=== PATIENT | female | born 1965 | race Caucasian/White ===

== ENCOUNTER 2016-10-06 05:31 | Inpatient (IN) | payer OTHER ==
[~2016-10-06] VITALS: Ht 154.9 cm; Wt 69.8 kg
[2016-10-06] VITALS (35 sets, daily range): BP systolic 139–184; BP diastolic 67–107
--- NOTE | ~2016-10-06 | H ---
[facility] [place] [address] HISTORY AND PHYSICAL Name: ÓSCAR HARMON Room #: 315-P [facility] IN M.R.#: [id number] Admission: 10/06/16 Attend Phys: Sylvain Mcpherson Discharge: 10/09/16 Date of : 67 Report #: [id number] THIS REPORT FOR: //name// CC: [facility] physician/PCP Sylvain Mcpherson ATTENDING PHYSICIAN: Dr. Mcpherson, PRIMARY CARE PHYSICIAN: Dr. Grubbs. CHIEF COMPLAINT: Left leg pain. HISTORY OF PRESENT ILLNESS: The patient is a 51-year-old female who came into the ER earlier this morning complaining of the left lower leg pain. The pain awoke her from her sleep around 5:00 a.m. this morning and continued to stay constant prior to arrival. She said her left foot felt somewhat cold for the last week. She rates her pain 10/10 upon arrival. She actually just saw her primary care physician last week complaining of some tingling in both of her feet, her doctor checked her sugar and said that it was very high and her blood sugar were uncontrolled that it was likely related to neuropathy. She has not been taking her metformin for 6 months because she says she felt fine and did not think that she needed it. Her primary care physician just started her on 70/30 insulin, she had not been checking her blood sugars at all. She also says the pain is significantly worse if she tries to walk. She has never had any history of clot. She denies any tobacco use. She has already been taken to IR and had any angiogram done which showed arterial occlusion in the left lower extremity and is in ICU with TPA infusing, she continues to have left foot pain. PAST MEDICAL HISTORY: Diabetes and peripheral neuropathy. PAST SURGICAL HISTORY: x 4 and a partial hysterectomy. ALLERGIES: None. HOME MEDICATIONS: 70/30 insulin 15 units daily and 7 units at night and hydrocodone one tab q. 4 hours p.r.n., aspirin 325 mg daily. SOCIAL HISTORY: The patient denies any tobacco, alcohol or drug use. She lives at home with her boyfriend. She is currently unemployed. She drinks alcohol occasionally. FAMILY HISTORY: Negative for any blood or bleeding disorder. REVIEW OF SYSTEMS: Twelve point review of systems was reviewed with the patient, otherwise negative unless stated in the HPI. PHYSICAL EXAMINATION: [facility] [address] [place] [address] HISTORY AND PHYSICAL Name: ÓSCAR HARMON Room #: 315-P DIS IN M.R.#: [id number] Admission: 10/06/16 Attend Phys: Sylvain Mcpherson Discharge: 10/09/16 Date of : 67 Report #: [id number] GENERAL: The patient is an alert female in no acute distress. CURRENT VITAL SIGNS: Temperature is 36.6, heart rate 115, respirations 12, blood pressure is 142/88, oxygen 97% on room air. HEENT: PERRLA. Sclerae is nonicteric. Oral mucosa is pink and moist. NECK: Supple, no JVD noted. CARDIOVASCULAR: Normal S1, S2. No murmurs, rubs or gallops. RESPIRATORY: Breath sounds are clear bilaterally. No wheezing or rhonchi. Breathing is nonlabored. ABDOMEN: Soft, nontender, nondistended with positive bowel sounds. VASCULAR: No peripheral edema noted, her left foot is cool and no palpable pulses, on Dopplers there a few monophasic sounds, but it is not her actual rate, her left foot is tender to touch. NEUROLOGIC: The patient is alert and oriented x 3. Speech is clear. She is answering questions appropriately and following commands. No focal deficits noted. LABORATORY AND DIAGNOSTICS: WBC is 5.6, hemoglobin 14.6, platelets 234. INR 1.1. D-dimer is 0.25. Sodium 135, potassium 4.1, BUN 13, creatinine 0.6, glucose is 297. LFTs are within normal limits. Cardiac enzymes are negative. BNP is . Venous Doppler was negative for DVT. Arterial Dopplers in the ER shows some occluded left distal femoral artery and occluded left trifurcation artery. ASSESSMENT AND PLAN: 1. Acute arterial occlusion of the left leg. The patient has already been taken to IR and TPA was given, she will continue with that TPA infusion as well as heparin infusion and per IR, she will call back in the morning for TPA with run off to further evaluate her leg for ischemia. 2. Diabetes, this is uncontrolled. She recently was started on 70/30 insulin, which we will resume, she has not taken metformin for 6 months. Her blood sugars were not getting checked. We will check a hemoglobin A1c. We will continue to follow the patient closely throughout the hospitalization and make changes based on clinical status. <ELECTRONICALLY SIGNED> By: CORRIE Chapman 10/12/16 [phone] 0805 CORRIE Chapman /nt
--- NOTE | ~2016-10-06 | EKG ---
[address] [place] [address] ELECTROCARDIOGRAM REPORT Name: ÓSCAR HARMON Room #: 238-P ADM IN M.R.#: [id number] Admission: 10/06/16 Attend Phys: Sylvain Mcpherson Discharge: Date of : 67 Report #: [id number] THIS REPORT FOR: //name// [facility] ED Test Date: 2016-10-06 Test Time: 08:50:52 Pat Name: ÓSCAR HARMON Department: Room: 238 Gender: F Metallurgical Lab Technician: Lizz HILL : 1965 Requested By: Riley Guerra Order Number: [id number] MD: Tenzin Garcia Measurements Intervals [place] Rate: 88 P: 33 SC: 188 QRS: 4 QRSD: 88 T: 27 QT: 360 QTc: 436 Interpretive Statements Sinus rhythm No significant abnormality No previous ECG available for comparison Electronically Signed On 10-07-2016 8:13:08 CDT by Tenzin Garcia [email or web address] <ELECTRONICALLY SIGNED> By: Tenzin Garcia MD, [facility] 10/07/16 0813 0850 0850 Tenzin Garcia MD, FACC /EPI
[~2016-10-06 05:31] MED LIST: ASPIRIN325 PO; BACTRIM DS TAB1 EACH PO; GLUMETZA1000 PO; IBUPROFEN 800800 MG PO; MACROBID 100 M100 M1 PO; METFORMIN HCL500 MG PO; NORCO 5-325 TA1 EACH PO
[2016-10-06 07:08] LABS: HEMOGLOBIN 14.6 gm/dL (12.0-15.0); MCH 30.4 pg (26.0-34.0); MCHC 33.9 g/dL (28.0-37.0); MCV 89.8 fL (80.0-100.0); RBC 4.79 mil/uL (4.20-5.00); WBC 5.6 thou/uL (4.0-11.0)
[2016-10-06 07:15] LABS: CALCIUM 9.3 mg/dL (8.5-10.1); CREATININE 0.6 mg/dL (0.6-1.3); POTASSIUM 4.1 mmol/L (3.5-5.1)
[2016-10-06 07:18] LABS: APTT 24.3 Seconds (24.5-32.8); INR 1.1; PROTIME 10.9 Seconds (9.3-11.4)
[2016-10-06 07:23] LABS: ALBUMIN 3.3 g/dL (3.4-5.0); TOTAL BILIRUBIN 0.4 mg/dL (<0.1-1.0); TOTAL PROTEIN 6.8 g/dL (6.4-8.2)
[2016-10-06 08:42] LABS: TROPONIN-I < 0.04 ng/mL (<0.04-0.07)
[2016-10-06 17:06] LABS: HEMATOCRIT 42.9 % (37.0-47.0); HEMOGLOBIN 14.8 gm/dL (12.0-15.0); MCH 30.9 pg (26.0-34.0); MCHC 34.5 g/dL (28.0-37.0); MCV 89.5 fL (80.0-100.0); RBC 4.79 mil/uL (4.20-5.00); RDW 12.7 % (10.5-14.5); WBC 9.7 thou/uL (4.0-11.0)
[2016-10-06 17:21] LABS: APTT 26.5 Seconds (24.5-32.8); FIBRINOGEN 278.7 mg/dL (210-360)
[2016-10-06 22:31] LABS: HEMATOCRIT 42.3 % (37.0-47.0); HEMOGLOBIN 14.5 gm/dL (12.0-15.0); MCH 30.8 pg (26.0-34.0); MCHC 34.4 g/dL (28.0-37.0); MCV 89.6 fL (80.0-100.0); RBC 4.73 mil/uL (4.20-5.00); RDW 12.6 % (10.5-14.5)
[2016-10-06 22:51] LABS: APTT 27.6 Seconds (24.5-32.8)
[2016-10-07] VITALS (30 sets, daily range): BP systolic 104–158; BP diastolic 66–089
[2016-10-07] MEDS ORDERED: NOVOLOG MI100 UNIT/M SC ×2 (00:09→00:11)
[2016-10-07 04:13] LABS: HEMATOCRIT 39.4 % (37.0-47.0); HEMOGLOBIN 13.4 gm/dL (12.0-15.0); MCH 30.7 pg (26.0-34.0); MCHC 34.1 g/dL (28.0-37.0); RBC 4.38 mil/uL (4.20-5.00); RDW 13.2 % (10.5-14.5); WBC 7.3 thou/uL (4.0-11.0)
[2016-10-07 04:34] LABS: APTT 27.8 Seconds (24.5-32.8); FIBRINOGEN 167.8 mg/dL (210-360)
[2016-10-07 10:38] LABS: CHOLESTEROL 248 mg/dL (<200); HDL CHOLESTEROL 44 mg/dL (>40); LDL CHOLESTEROL 178 mg/dL (<100); TC:HDL 5.6 Ratio (Not establshd); TRIGLYCERIDE 134 mg/dL (<150); VLDL 27 mg/dL (<40)
[2016-10-07 12:53] LABS: HEMATOCRIT 40.6 % (37.0-47.0); HEMOGLOBIN 13.8 gm/dL (12.0-15.0); MCH 30.9 pg (26.0-34.0); MCHC 33.9 g/dL (28.0-37.0); RBC 4.46 mil/uL (4.20-5.00); RDW 12.9 % (10.5-14.5); WBC 7.4 thou/uL (4.0-11.0)
[2016-10-07 13:08] LABS: APTT 27.8 Seconds (24.5-32.8)
[2016-10-07 22:06] LABS: GLYCOHEMOGLOBIN (HGB A1C) 13.3 % (4.8-5.6)
[2016-10-07 22:44] LABS: HEMATOCRIT 39.2 % (37.0-47.0); HEMOGLOBIN 13.4 gm/dL (12.0-15.0); MCH 30.9 pg (26.0-34.0); MCHC 34.1 g/dL (28.0-37.0); MCV 90.6 fL (80.0-100.0); RBC 4.33 mil/uL (4.20-5.00); WBC 6.2 thou/uL (4.0-11.0)
[2016-10-07 22:59] LABS: FIBRINOGEN 192.5 mg/dL (210-360)
[2016-10-07 23:03] LABS: APTT 61.8 Seconds (24.5-32.8)
[2016-10-08 00:01] VITALS: BP 107/66
[2016-10-08 04:23] VITALS: BP 117/65
[2016-10-08 06:12] LABS: HEMATOCRIT 36.2 % (37.0-47.0); HEMOGLOBIN 12.5 gm/dL (12.0-15.0); MCH 31.1 pg (26.0-34.0); MCHC 34.4 g/dL (28.0-37.0); MCV 90.5 fL (80.0-100.0); RDW 12.8 % (10.5-14.5); WBC 7.5 thou/uL (4.0-11.0)
[2016-10-08 06:22] LABS: APTT 56.2 Seconds (24.5-32.8)
[2016-10-08 06:35] LABS: ALBUMIN 2.5 g/dL (3.4-5.0); CALCIUM 8.2 mg/dL (8.5-10.1); CREATININE 0.5 mg/dL (0.6-1.3); POTASSIUM 3.6 mmol/L (3.5-5.1)
[2016-10-08 08:09] VITALS: BP 159/82
[2016-10-08 10:50] LABS: HEMATOCRIT 36.6 % (37.0-47.0); HEMOGLOBIN 12.8 gm/dL (12.0-15.0); MCH 31.3 pg (26.0-34.0); MCHC 34.9 g/dL (28.0-37.0); MCV 89.6 fL (80.0-100.0); RBC 4.08 mil/uL (4.20-5.00); RDW 13.3 % (10.5-14.5); WBC 7.3 thou/uL (4.0-11.0)
[2016-10-08 11:04] LABS: APTT 52.5 Seconds (24.5-32.8); FIBRINOGEN 278.7 mg/dL (210-360)
[2016-10-08 11:50] VITALS: BP 159/82
[2016-10-08 16:12] VITALS: BP 150/83
[2016-10-08 17:01] LABS: HEMATOCRIT 35.9 % (37.0-47.0); HEMOGLOBIN 12.6 gm/dL (12.0-15.0); MCH 31.2 pg (26.0-34.0); MCHC 34.9 g/dL (28.0-37.0); MCV 89.2 fL (80.0-100.0); RBC 4.03 mil/uL (4.20-5.00); RDW 12.9 % (10.5-14.5); WBC 6.6 thou/uL (4.0-11.0)
[2016-10-08 17:13] LABS: FIBRINOGEN 282.8 mg/dL (210-360)
[2016-10-08 17:16] LABS: APTT 26.6 Seconds (24.5-32.8)
[2016-10-08 20:00] VITALS: BP 149/82
[2016-10-08 22:45] LABS: HEMATOCRIT 36.3 % (37.0-47.0); HEMOGLOBIN 12.5 gm/dL (12.0-15.0); MCH 31.1 pg (26.0-34.0); MCHC 34.5 g/dL (28.0-37.0); MCV 90.2 fL (80.0-100.0); RBC 4.03 mil/uL (4.20-5.00); RDW 12.9 % (10.5-14.5); WBC 7.2 thou/uL (4.0-11.0)
[2016-10-08 22:59] LABS: APTT 25.7 Seconds (24.5-32.8); FIBRINOGEN 282.8 mg/dL (210-360)
[2016-10-09 04:00] VITALS: BP 137/75
[2016-10-09 08:06] VITALS: BP 135/84
[2016-10-09] MEDS ORDERED: CLOPIDOGREL75 MG PO (11:07)
[2016-10-09] MEDS ORDERED: ASPIR 8181 MG PO (11:12)
[2016-10-09 12:15] VITALS: BP 135/84
[2016-10-09 12:49] VITALS: BP 128/97
== END 2016-10-09 12:58 | disposition home or self-care (01) | DRG 254 ==
LOC: ER 05:31 → EROBS 08:15 → ICU 08:15 → 3N 10-08 01:17
PROVIDERS: Emergency Medicine; Hospitalist; Nurse Practitioner Acute Care; Radiology Vascular & Interventional Radiology
PROC: 3E03317 Introduction of Other Thrombolytic into Peripheral Vein, Percutaneous Approach (ICD-10-PCS; principal; 2016-10-06)
PROC: 047N3ZZ Dilation of Left Popliteal Artery, Percutaneous Approach (ICD-10-PCS; 2016-10-07)
PROC: 047L34Z Dilation of Left Femoral Artery with Drug-eluting Intraluminal Device, Percutaneous Approach (ICD-10-PCS; 2016-10-07)
PROC: 047Q3ZZ Dilation of Left Anterior Tibial Artery, Percutaneous Approach (ICD-10-PCS; 2016-10-07)
PROC: B41G1ZZ Fluoroscopy of Left Lower Extremity Arteries using Low Osmolar Contrast (ICD-10-PCS; 2016-10-07)
DX: I73.9 Peripheral vascular disease, unspecified (principal); I77.1 Stricture of artery; E11.42 Type 2 diabetes mellitus with diabetic polyneuropathy; E11.65 Type 2 diabetes mellitus with hyperglycemia; Z79.4 Long term (current) use of insulin; Z79.82 Long term (current) use of aspirin; Z79.899 Other long term (current) drug therapy; Z90.711 Acquired absence of uterus with remaining cervical stump
CPT/HCPCS: 10078; 10096

== ENCOUNTER 2018-04-21 19:31 | Inpatient (IN) | payer OTHER ==
[~2018-04-21] VITALS: Ht 157.5 cm; Wt 74.0 kg
--- NOTE | ~2018-04-21 | EKG ---
[address] [address] ELECTROCARDIOGRAM REPORT Name: ÓSCAR HARMON Room #: 201-P ADM IN M.R.#: [id number] Admission: 04/21/18 Attend Phys: Sylvain Mcpherson Discharge: Date of : 67 Report #: [id number] THIS REPORT FOR: //name// [facility] ED Test Date: 2018-04-21 Test Time: 19:59:37 Pat Name: ÓSCAR HARMON Department: Room: 201 Gender: F Educational Manager: RUDOLPH : 1965 Requested By: Kyra Nicole Order Number: [id number] MD: Tenzin Garcia Measurements Intervals [place] Rate: 109 P: 45 [place]: 157 QRS: 60 QRSD: 95 T: -29 QT: 343 QTc: 463 Interpretive Statements Sinus tachycardia Probable left atrial enlargement Inferior infarct, age indeterminate Compared to ECG 10/06/2016 08:50:[address] and T wave abnormality is now present Electronically Signed On 04-22-2018 10:11:54 CDT by Tenzin Garcia [email or web address] <ELECTRONICALLY SIGNED> By: Tenzin Garcia MD, [facility] 04/22/18 1011 58 58 Tenzin Garcia MD, [facility] /EPI
[~2018-04-21 19:31] MED LIST changes: +ASPIR 8181 MG PO; +CLOPIDOGREL75 MG PO; +NOVOLOG MI100 UNIT/M SC
[2018-04-21 19:39] VITALS: BP 99/69
[2018-04-21 20:08] LABS: URINE BILIRUBIN NEGATIVE (Negative); URINE BLOOD 1+ (Negative); URINE COLOR YELLOW; URINE GLUCOSE-RANDOM* 3+ (Negative); URINE KETONES 1+ (Negative); URINE NITRITE-REFLEX NEGATIVE (Negative); URINE PROTEIN (DIPSTICK) TRACE (Negative); URINE UROBILINOGEN 0.2 E.U./dl (0.2-1.0)
[2018-04-21 20:11] LABS: URINE LEUKOCYTES-REFLEX 2+ (Negative)
[2018-04-21 20:12] LABS: URINE CLARITY CLOUDY
[2018-04-21 20:14] LABS: BACTERIA-REFLEX >30 Many /HPF (None Seen); SQUAMOUS 0-3 Few /LPF (0-3); URINE RBC 3-10 Few /HPF (0-2); URINE WBC-REFLEX >25 Many /HPF (0-5)
[2018-04-21 20:15] LABS: CASTS None Seen /LPF (None Seen); CRYSTALS None Seen /LPF (None Seen)
[2018-04-21 20:38] LABS: ABSOLUTE NEUTROPHILS 9.1 thou/uL (1.4-8.2); BASOPHILS 0.2 % (0.0-2.0); HEMATOCRIT 45.1 % (37.0-47.0); HEMOGLOBIN 15.8 gm/dL (12.0-15.0); LYMPHOCYTES 8.5 % (24.0-44.0); MCH 30.2 pg (26.0-34.0); MCV 86.1 fL (80.0-100.0); MONOCYTES 5.3 % (1.0-8.0); PLATELET COUNT 262 thou/uL (150-400); RBC 5.23 mil/uL (4.20-5.00); RDW 13.7 % (10.5-14.5); WBC 10.6 thou/uL (4.0-11.0)
[2018-04-21 20:42] LABS: CALCIUM 10.2 mg/dL (8.5-10.1); CREATININE 1.1 mg/dL (0.6-1.0); POTASSIUM 3.7 mmol/L (3.5-5.1)
[2018-04-21 20:50] LABS: ALBUMIN 3.6 g/dL (3.4-5.0); TOTAL BILIRUBIN 0.6 mg/dL (<0.1-1.0); TOTAL PROTEIN 8.3 g/dL (6.4-8.2); TROPONIN-I 0.21 ng/mL (<0.06)
[2018-04-21 22:52] VITALS: BP 98/55
[2018-04-21 23:16] VITALS: BP 101/55
[2018-04-21 23:25] VITALS: BP 105/60
[2018-04-22] MEDS ORDERED: NOVOLIN 70100 UNIT/5 SUBQ (00:35)
[2018-04-22 03:54] VITALS: BP 93/63
[2018-04-22 04:18] LABS: HEMATOCRIT 38.5 % (37.0-47.0); MCH 29.3 pg (26.0-34.0); MCHC 33.7 g/dL (28.0-37.0); MCV 87.2 fL (80.0-100.0); RBC 4.42 mil/uL (4.20-5.00); RDW 13.5 % (10.5-14.5)
[2018-04-22 04:28] LABS: CALCIUM 8.7 mg/dL (8.5-10.1); CREATININE 0.9 mg/dL (0.6-1.0); POTASSIUM 3.4 mmol/L (3.5-5.1)
[2018-04-22 08:14] VITALS: BP 128/71
[2018-04-22 12:23] VITALS: BP 119/59
[2018-04-22 14:19] LABS: URINE BILIRUBIN NEGATIVE (Negative); URINE BLOOD 1+ (Negative); URINE CLARITY CLEAR; URINE COLOR YELLOW; URINE GLUCOSE-RANDOM* TRACE (Negative); URINE KETONES TRACE (Negative); URINE LEUKOCYTES 1+ (Negative); URINE NITRITE POSITIVE (Negative); URINE PROTEIN (DIPSTICK) 1+ (Negative); URINE SPECIFIC GRAVITY 1.015 (1.005-1.035); URINE UROBILINOGEN 0.2 E.U./dl (0.2-1.0)
[2018-04-22 14:30] LABS: CASTS None Seen /LPF (None Seen); SQUAMOUS None Seen /LPF (0-3); URINE RBC 3-10 Few /HPF (0-2); URINE WBC >25 Many /HPF (0-5)
[2018-04-22 14:31] LABS: BACTERIA 1-9 Few /HPF (None Seen); CRYSTALS None Seen /LPF (None Seen); MUCUS 4-6 Moderate strn/LPF (None Seen); WBC CLUMPS Packed (None Seen)
[2018-04-22 14:47] VITALS: BP 124/69
[2018-04-22 19:15] VITALS: BP 91/36
[2018-04-22 23:05] LABS: GLYCOHEMOGLOBIN (HGB A1C) 14.7 % (4.8-5.6)
[2018-04-23 03:56] VITALS: BP 149/78
[2018-04-23 04:12] LABS: ABSOLUTE NEUTROPHILS 5.6 thou/uL (1.4-8.2); BASOPHILS 0.4 % (0.0-2.0); HEMOGLOBIN 12.4 gm/dL (12.0-15.0); LYMPHOCYTES 10.1 % (24.0-44.0); MCH 30.1 pg (26.0-34.0); MCHC 34.3 g/dL (28.0-37.0); MCV 87.7 fL (80.0-100.0); MONOCYTES 7.9 % (1.0-8.0); PLATELET COUNT 162 thou/uL (150-400); POLYS 81.6 % (36.0-66.0); WBC 6.9 thou/uL (4.0-11.0)
[2018-04-23 04:28] LABS: CALCIUM 8.5 mg/dL (8.5-10.1); CREATININE 0.7 mg/dL (0.6-1.0); MAGNESIUM 1.8 mg/dL (1.8-2.4); POTASSIUM 3.6 mmol/L (3.5-5.1)
[2018-04-23 07:59] VITALS: BP 150/82
[2018-04-23 11:07] VITALS: BP 1586/95
[2018-04-23 15:50] VITALS: BP 152/95
[2018-04-23 19:27] VITALS: BP 141/84
[2018-04-24 05:28] VITALS: BP 117/71
[2018-04-24 07:12] VITALS: BP 138/84
[2018-04-24] MEDS ORDERED: CIPRO500 MG PO (07:55)
[2018-04-24 12:08] VITALS: BP 140/82
[2018-04-24 15:07] VITALS: BP 135/84
[2018-04-24 18:34] VITALS: BP 135/84
[2018-04-24 19:48] VITALS: BP 135/84
== END 2018-04-24 19:20 | disposition home or self-care (01) | DRG 871 ==
LOC: ER 19:31 → 2N 22:32 → EROBS 22:32 → 2N 23:20
PROVIDERS: Internal Medicine; Nurse Practitioner Family; Student in an Organized Health Care Education/Training Program
DX: A41.9 Sepsis, unspecified organism (principal); R65.21 Severe sepsis with septic shock; N10 Acute pyelonephritis; E11.9 Type 2 diabetes mellitus without complications; E66.9 Obesity, unspecified; Z90.49 Acquired absence of other specified parts of digestive tract; Z79.899 Other long term (current) drug therapy; Z79.82 Long term (current) use of aspirin; Z79.4 Long term (current) use of insulin; Z68.29 Body mass index [BMI] 29.0-29.9, adult; Z79.01 Long term (current) use of anticoagulants; Z95.820 Peripheral vascular angioplasty status with implants and grafts; Z23 Encounter for immunization
CPT/HCPCS: 10081

== ENCOUNTER 2019-07-24 16:43 | Inpatient (IN) | payer OTHER ==
[~2019-07-24] VITALS: Ht 165.1 cm; Wt 82.2 kg
[~2019-07-24 16:43] MED LIST changes: +CIPRO500 MG PO; +NOVOLIN 70100 UNIT/5 SUBQ
[2019-07-24 16:45] VITALS: BP 143/81
[2019-07-24] MEDS ORDERED: LANTUS SOL100 UNIT/1 SUBQ (18:45)
[2019-07-24] MEDS ORDERED: ATORVASTATIN CA80 MG PO (18:45)
[2019-07-24] MEDS ORDERED: ASA81BEC PO (18:45)
[2019-07-24 19:00] LABS: ABSOLUTE NEUTROPHILS 8.6 thou/uL (1.4-8.2); BASOPHILS 0.5 % (0.0-2.0); EOSINOPHILS 0.1 % (0.0-3.0); HEMATOCRIT 44.4 % (37.0-47.0); HEMOGLOBIN 15.1 gm/dL (12.0-15.0); LYMPHOCYTES 5.4 % (24.0-44.0); MCH 30.2 pg (26.0-34.0); MCHC 33.9 g/dL (28.0-37.0); MCV 88.9 fL (80.0-100.0); MONOCYTES 6.2 % (1.0-8.0); PLATELET COUNT 246 thou/uL (150-400); POLYS 87.8 % (36.0-66.0); WBC 9.8 thou/uL (4.0-11.0)
[2019-07-24 19:07] LABS: ANION GAP 9 mmol/L (7-16); BUN 18 mg/dL (7-18); CALCIUM 9.8 mg/dL (8.5-10.1); CHLORIDE 96 mmol/L (98-107); CO2 28 mmol/L (21-32); GLUCOSE 442 mg/dL (74-106); POTASSIUM 4.2 mmol/L (3.5-5.1); SODIUM 133 mmol/L (136-145)
[2019-07-24 19:17] LABS: ALBUMIN 3.6 g/dL (3.4-5.0); DIRECT BILIRUBIN 0.1 mg/dL (<0.1-0.2); LIPASE 66 U/L (73-393); SGOT 20 U/L (15-37); SGPT 29 U/L (30-65); TOTAL BILIRUBIN 0.6 mg/dL (<0.1-1.0); TOTAL PROTEIN 8.1 g/dL (6.4-8.2); TROPONIN-I <0.06 ng/mL (<0.06)
[2019-07-24 20:50] LABS: APTT 28.3 Seconds (24.5-32.8); INR 1.1; PROTIME 10.8 Seconds (9.3-11.4)
[2019-07-25] VITALS (13 sets, daily range): BP systolic 110–143; BP diastolic 60–84
[2019-07-25 02:40] LABS: CSF GLUCOSE 220 mg/dL (40-70)
[2019-07-25 02:43] LABS: CSF RBC 5 /mm3; CSF WBC 7 /mm3 (0-10); VOLUME 6.5 ml
[2019-07-25 02:44] LABS: CSF CLARITY CLEAR; CSF COLOR COLORLESS
[2019-07-25 03:24] LABS: CSF POLYS 8 %
[2019-07-25 03:25] LABS: CSF EOSINOPHILS 1 %; CSF LYMPHOCYTES 41 %
[2019-07-25 05:24] LABS: URINE CLARITY CLOUDY; URINE COLOR YELLOW; URINE GLUCOSE-RANDOM* 3+ (Negative); URINE KETONES 2+ (Negative); URINE PROTEIN (DIPSTICK) TRACE (Negative)
[2019-07-25 05:25] LABS: URINE BILIRUBIN 1+ (Negative); URINE BLOOD 2+ (Negative); URINE LEUKOCYTES-REFLEX NEGATIVE (Negative); URINE NITRITE-REFLEX NEGATIVE (Negative); URINE UROBILINOGEN 0.2 E.U./dl (0.2-1.0)
[2019-07-25 05:53] LABS: CASTS None Seen /LPF (None Seen); CRYSTALS None Seen /LPF (None Seen); MUCUS 0-3 Light strn/LPF (None Seen); SQUAMOUS 0-3 Few /LPF (0-3); URINE RBC 3-10 Few /HPF (0-2); URINE WBC-REFLEX 0-5 Rare /HPF (0-5)
[2019-07-25 09:44] LABS: HEMATOCRIT 42.2 % (37.0-47.0); HEMOGLOBIN 13.9 gm/dL (12.0-15.0); MCHC 32.9 g/dL (28.0-37.0); MCV 91.4 fL (80.0-100.0); RBC 4.61 mil/uL (4.20-5.00); RDW 13.4 % (10.5-14.5); WBC 11.4 thou/uL (4.0-11.0)
[2019-07-25 10:07] LABS: CALCIUM 9.5 mg/dL (8.5-10.1); CREATININE 1.4 mg/dL (0.6-1.0); POTASSIUM 4.7 mmol/L (3.5-5.1); TOTAL BILIRUBIN 0.6 mg/dL (<0.1-1.0); TOTAL PROTEIN 7.3 g/dL (6.4-8.2)
[2019-07-25 17:29] LABS: URINE BLOOD TRACE (Negative); URINE CLARITY SL CLOUDY; URINE COLOR YELLOW; URINE GLUCOSE-RANDOM* 3+ (Negative); URINE KETONES 1+ (Negative); URINE LEUKOCYTES NEGATIVE (Negative); URINE NITRITE NEGATIVE (Negative); URINE PROTEIN (DIPSTICK) TRACE (Negative); URINE SPECIFIC GRAVITY 1.015 (1.005-1.035); URINE UROBILINOGEN 0.2 E.U./dl (0.2-1.0)
[2019-07-25 17:34] LABS: ICTOTEST (BILI CONFIRMATORY) Negative (Negative); URINE BILIRUBIN NEGATIVE (Negative)
[2019-07-26 02:08] LABS: GLYCOHEMOGLOBIN (HGB A1C) 13.9 % (4.8-5.6)
[2019-07-26 03:26] VITALS: BP 152/87
[2019-07-26 05:31] LABS: CALCIUM 8.6 mg/dL (8.5-10.1); CREATININE 1.2 mg/dL (0.6-1.0); MAGNESIUM 1.9 mg/dL (1.8-2.4); POTASSIUM 3.9 mmol/L (3.5-5.1)
[2019-07-26 05:40] LABS: HEMATOCRIT 39.1 % (37.0-47.0); HEMOGLOBIN 12.8 gm/dL (12.0-15.0); MCHC 32.6 g/dL (28.0-37.0); MCV 92.1 fL (80.0-100.0); RBC 4.25 mil/uL (4.20-5.00); RDW 13.6 % (10.5-14.5)
[2019-07-26 07:30] VITALS: BP 139/80
--- NOTE | 2019-07-26 08:04 | HC ---
[facility] [place] [address] [place] [address] CONSULTATION Name: ÓSCAR HARMON Room #: 214-P ADM IN M.R.#: [id number] Admission: 07/25/19 Attend Phys: Marquise Montgomery MD Discharge: Date of : 67 Report #: [id number] THIS REPORT FOR: //name// CC: Cady Jett [facility] physician/PCP DATE OF SERVICE: 07/25/2019 ENDOCRINE CONSULTATION NOTE CONSULTING PHYSICIAN: Dr. Montgomery. REASON FOR CONSULTATION: Uncontrolled type 2 diabetes mellitus. HISTORY OF PRESENT ILLNESS: This is a 53-year-old female patient whose medical background is significant for multiple medical issues, including type 2 diabetes mellitus, hypertension, hyperlipidemia and obesity, who presented to the ER with a wide array of symptoms including chills, diffuse pains, diffuse burning sensation, abdominal discomfort. She rated her discomfort degree as a 10/10. She also describes neck stiffness and rigidity. When questioned about her diabetes history, she indicated that she has had type 2 diabetes mellitus for over 10 years. She is maintained on a combination of metformin, Humulin 70/30 insulin taken at a dose of 5 units in the morning and 30 units in the evenings in addition to Lantus insulin 10 units twice a day. She describes that her fasting blood glucose values are typically in the low to mid 100s, but that later in the day, her blood glucose would run typically above 400 and occasionally into the 600 mg/dL range. When asked about hypoglycemia, she said that it occasionally happens, but then she identified that as blood sugars in the low 100s. The patient believes that she has had some retinal damage due to 2 diabetes mellitus, but could not elaborate further on this. She is not aware of issues pertaining to diabetic nephropathy, but does have peripheral numbness and tingling likely reflective of diabetic neuropathy. The patient denies an active history of coronary artery disease, but recalls having had a lower extremity surgical intervention, but she was not exactly sure as to the nature of that intervention. Her records indicate that she had undergone stenting of her femoral artery due to peripheral vascular disease. REVIEW OF SYSTEMS: CONSTITUTIONAL: Fatigue, tiredness, fever, chills, no changes in body weight. HEENT: Negative for sinus pain, sinus pressure, ear drainage. PULMONARY: Occasional shortness of breath and cough, but no hemoptysis. CARDIAC: Intermittent palpitations, no chest pain. She has intermittent lower extremity swelling. GASTROINTESTINAL: Abdominal discomfort, heartburn, nausea, but no vomiting. [facility] [address] [place] [address] CONSULTATION Name: ÓSCAR HARMON Room #: 214-P [facility] IN ..#: [id number] Admission: 07/25/19 Attend Phys: Marquise Montgomery MD Discharge: Date of : 67 Report #: [id number] NEUROLOGY: Tremors, dizziness, lightheadedness, but not seizure activity or loss of consciousness. MUSCULOSKELETAL: Diffuse body aches and pains. PSYCHIATRIC: No delusions or hallucinations. SKIN: No rash, ulceration, or other major abnormalities. Otherwise, review of systems noncontributory unless mentioned in HPI. PAST MEDICAL HISTORY: 1. Type 2 diabetes mellitus. 2. Hypertension. 3. Hyperlipidemia. 4. Peripheral diabetic neuropathy. 5. Diabetic retinopathy. 6. Peripheral vascular disease, status post 2 stent placements in her femoral artery, likely right sided. OUTPATIENT MEDICATIONS: Include Humulin 70/30 insulin 5 units in a.m., 30 units at night; Lantus insulin 10 units twice a day; metformin, unknown dose; aspirin 81 mg daily; Plavix 75 mg daily; atorvastatin 80 mg daily. The patient says that she is also on an antihypertensive agent, but could not specify the name of that. ALLERGIES: No known drug allergies. FAMILY HISTORY: Noncontributory. SOCIAL HISTORY: The patient denies use of tobacco or illicit drugs. She drinks alcohol only socially. PHYSICAL EXAMINATION: GENERAL: Pleasant middle-aged female patient who is not in apparent pain or distress. VITAL SIGNS: Blood pressure is 110/62, heart rate is 103 beats per minute, respirations 18 per minute, temperature 37.2 degrees. CONSTITUTIONAL: The patient appears somewhat tired, but not in active pain or distress. HEENT: Anicteric sclerae. Intact extraocular motions. NECK: Somewhat stiff, tender to extension. Nuchal rigidity is appreciated. No JVD, carotid bruits or lymphadenopathy, no thyromegaly. CHEST: Noted for good air entry bilaterally without wheezes or crackles. HEART: Regular rate and rhythm without murmurs or gallops. ABDOMEN: Soft, lax. No guarding, no organomegaly. EXTREMITIES: Lower extremity exam, trace ankle edema. No skin breaks, palpable pedal pulses. NEUROLOGIC: Awake, alert and oriented to time, place and person. Nuchal rigidity is noted as above. Otherwise, her exam is nonfocal. [facility] [address] [place] [address] CONSULTATION Name: ÓSCAR HARMON Room #: 214-P ADM IN M.R.#: [id number] Admission: 07/25/19 Attend Phys: Marquise Montgomery MD Discharge: Date of : 67 Report #: [id number] PSYCHIATRIC: Normal mood and affect, interactive, appropriate. LABORATORY RESULTS: On arrival to the ER yesterday, blood glucose was 467 mg/dL. Her most recent before this dictation was at 159 mg/dL. Otherwise, sodium 135, potassium 4.7, CO2 of 20, chloride 98, anion gap 16, BUN 25, creatinine 1.5, AST 20, lipase 66. Total bilirubin 0.6, direct bilirubin 0.1, calcium 9.5, phosphorus 4.0, magnesium 2.0, alkaline phosphatase 178, ALT 25, total protein 7.3, albumin 3.0, EGFR 39. Lactic acid 1.2. CPK 48. Hemoglobin A1c done in 04/2018 was 14.7%. Currently white blood count 11.4, hemoglobin 13.9, hematocrit 42.2, platelets 216. ASSESSMENT AND PLAN: 1. Type 2 diabetes mellitus. The patient's outlook is uncontrolled judging by her reported blood glucose values as well as by the occurrence of diabetic complications and recorded blood glucose values here. I will request a hemoglobin A1c to better assess her level of control. Having reviewed her home antidiabetic regimen with her, we are unable to maintain metformin therapy at this point in time given her active issues with renal insufficiency. I would that hold off until we have better and more clear clinical status. Of note is that her regimen is not very well organized in terms of her intake of basal and bolus insulin. This is basically a combination of mixed insulin with a long-acting insulin. That said, I would like to resort to a basal bolus regimen and I will do so in the form of Lantus insulin 30 units q.p.m. in addition to Humalog insulin 10 units with meals while we support her with Humalog supplemental scale, moderate intensity. Blood glucose monitoring will commence a.c. and at bedtime and further adjustments will be made to this regimen as per her recorded blood glucose values. 2. Hypertension. The patient's level of blood pressure control is reasonable thus far. She is to maintain antihypertensive therapy as per the hospital medicine team. 3. Hyperlipidemia. The patient is maintained on atorvastatin therapy and tolerates it well. She is to continue with the same. 4. Diabetic neuropathy. This is mild and intermittent. This does not seem to be necessarily related to her complaints of generalized burning sensation on presentation. I appreciate this consultation by Dr. Montgomery. <ELECTRONICALLY SIGNED> By: Maribell Alvarado MD 07/26/19 0804 1604 0219 Maribell Alvarado MD /nt
[2019-07-26 10:50] VITALS: BP 126/57
[2019-07-26 15:30] VITALS: BP 129/74
[2019-07-26 19:31] VITALS: BP 132/64
[2019-07-26 20:07] LABS: URINE BLOOD 3+ (Negative); URINE CLARITY CLEAR; URINE COLOR YELLOW; URINE GLUCOSE-RANDOM* TRACE (Negative); URINE KETONES TRACE (Negative); URINE LEUKOCYTES-REFLEX NEGATIVE (Negative); URINE NITRITE-REFLEX NEGATIVE (Negative); URINE PROTEIN (DIPSTICK) 2+ (Negative)
[2019-07-26 20:14] LABS: ICTOTEST (BILI CONFIRMATORY) Negative (Negative); URINE BILIRUBIN NEGATIVE (Negative)
[2019-07-26 20:19] LABS: SQUAMOUS 0-3 Few /LPF (0-3)
[2019-07-26 20:20] LABS: COARSE GRANULAR CASTS 0-3 Few /LPF (None Seen); YEAST-REFLEX Present (None Seen)
[2019-07-26 20:21] LABS: URIC ACID CRYSTALS 4-10 Moderate /LPF (None Seen); URINE WBC-REFLEX 0-5 Rare /HPF (0-5)
[2019-07-26 21:42] LABS: BE(vivo) -6.4 mmol/L (-2 to +3); HCO3 16.7 mmol/L (22.0-26.0); PCO2 27.2 mmHg (35.0-45.0); PO2 59.1 mmHg (80.0-100.0); pH 7.407 (7.360-7.450); sO2 91.3 % (92.0-98.0)
--- NOTE | 2019-07-26 21:58 | HC ---
[place] [address] CONSULTATION Name: FAUSTINOÓSCAR Room #: 214-P ADM IN M.R.#: [id number] Admission: 07/25/19 Attend Phys: Marquise Montgomery MD Discharge: Date of : 67 Report #: [id number] THIS REPORT FOR: //name// CC: Cady Jett [facility] physician/PCP DATE OF SERVICE: 07/25/2019 INFECTIOUS DISEASE CONSULTATION REASON FOR CONSULTATION: Fever and headache. HISTORY OF PRESENT ILLNESS: This 53-year-old immigrant from [place] presents with acute onset of fever, chills, sweats, headache, neck pain, and abdominal discomfort with 2 episodes of nausea and vomiting. There has been no diarrhea. Denies any rash. No cough or sputum production. No pharyngitis symptoms. Has mild photophobia. No confusional episodes. No seizure activity. No dysuria, frequency or flank pain. No sinusitis symptoms or dental issues. She has had no recent instrumentations. She has been in the [place] over 30 years. No known exposures. Does clean houses, limited degree. has been without illness. Been around no kids or animals. ALLERGIES: None known. MEDICATIONS: As noted on her SEP. She has diabetes; including insulin, atorvastatin, clopidogrel, aspirin. PAST MEDICAL AND SURGICAL HISTORY: Diabetes, hypertension, hyperlipidemia, cholecystectomy, hysterectomy, peripheral vascular disease status post stent, , episode of meningitis documented at [facility] earlier this year with no known sequelae. Further details of this are not clear. FAMILY HISTORY: Noncontributory. SOCIAL HISTORY: Nonsmoker, minimal alcohol intake, no HIV risks. REVIEW OF SYSTEMS: Ten-point review is negative other than what has been described above. PHYSICAL EXAMINATION: VITAL SIGNS: Afebrile, hemodynamically stable. GENERAL: She is alert and cooperative and pleasant, in no acute distress. SKIN: Without rash or decubitus. No palpable adenopathy. HEENT: Eyes, some photophobia. No scleral icterus. Pupils equal, round and [address] [place] [address] CONSULTATION Name: FAUSTINOÓSCAR Room #: 214-[facility] IN M.R.#: [id number] Admission: 07/25/19 Attend Phys: Marquise Montgomery MD Discharge: Date of : 67 Report #: [id number] reactive to light. Extraocular movements intact. Mouth without mucositis. NECK: Supple. She did have some tenderness in the posterior neck muscles. No other masses or thyromegaly. LUNGS: Clear. HEART: Regular without murmur. ABDOMEN: Soft, nontender. No hepatosplenomegaly or mass appreciated. GENITORECTAL: Not performed. EXTREMITIES: Without clubbing, cyanosis or edema. Strength in upper and lower extremities was normal. NEUROLOGIC: Cranial nerves intact. Mood was normal. Deep tendon reflexes were normal throughout. LABORATORY STUDIES: Reviewed. MICROBIOLOGY REPORTS: Reviewed. IMAGING: Chest x-ray reviewed. CT scan of the head reviewed. X-ray of the abdomen reviewed. IMPRESSION: A 53-year-old with: 1. Acute febrile illness, associated with cephalgia and meningeal symptoms. Her CSF showed 7 WBCs, 5 RBCs, predominant mononuclear and lymphocytic change with glucose of 220 and protein of 82. Her blood glucose levels were over 500 earlier this morning. Etiology of her presentation seems most likely viral due to its acute nature, and her response to IV fluids and pain medication. Much of the CSF changes, I suspect, are related to her diabetes. Unclear what happened to her earlier this year. This will need to be further evaluated. 2. Diabetes. 3. Hypertension. 4. Hyperlipidemia. 5. Peripheral vascular disease. RECOMMENDATIONS: We will continue antibiotic coverage for the next 24 to 48 hours pending culture results. Check viral respiratory panel. IV fluids and pain medication. Check cryptococcal antigen. We will see how she responds over the next 24 to 48 hours for final recommendations. <ELECTRONICALLY SIGNED> By: Riley Parks MD 07/26/19 2158 1242 0107 Riley Parks MD /nt
[2019-07-27 04:10] VITALS: BP 152/70
[2019-07-27 05:49] LABS: CREATININE 0.9 mg/dL (0.6-1.0); MAGNESIUM 2.1 mg/dL (1.8-2.4); POTASSIUM 3.8 mmol/L (3.5-5.1)
[2019-07-27 07:20] VITALS: BP 143/77
[2019-07-27 16:30] VITALS: BP 142/67
[2019-07-27 20:05] VITALS: BP 131/77
[2019-07-28 04:01] LABS: CALCIUM 8.7 mg/dL (8.5-10.1); CREATININE 0.8 mg/dL (0.6-1.0); MAGNESIUM 1.9 mg/dL (1.8-2.4); POTASSIUM 3.4 mmol/L (3.5-5.1)
[2019-07-28 05:00] VITALS: BP 137/99
[2019-07-28 08:40] VITALS: BP 153/83
[2019-07-28 13:43] VITALS: BP 136/84
[2019-07-28 22:06] LABS: ADENOVIRUS Negative (Negative); INFLUENZA A Negative (Negative); INFLUENZA B Negative (Negative); METAPNEUMOVIRUS Negative (Negative); PARAINFLUENZA 1 Negative (Negative); PARAINFLUENZA 2 Negative (Negative); PARAINFLUENZA 3 Negative (Negative); RHINOVIRUS Negative (Negative); RSV A Negative (Negative); RSV B Negative (Negative)
[2019-07-29 04:24] VITALS: BP 143/81
[2019-07-29 04:48] LABS: HEMATOCRIT 35.1 % (37.0-47.0); HEMOGLOBIN 11.5 gm/dL (12.0-15.0); MCH 29.8 pg (26.0-34.0); MCHC 32.6 g/dL (28.0-37.0); MCV 91.5 fL (80.0-100.0); RBC 3.84 mil/uL (4.20-5.00); RDW 14.4 % (10.5-14.5); WBC 5.4 thou/uL (4.0-11.0)
[2019-07-29 04:57] LABS: CALCIUM 8.8 mg/dL (8.5-10.1); CREATININE 0.7 mg/dL (0.6-1.0); POTASSIUM 3.4 mmol/L (3.5-5.1)
[2019-07-29 09:44] VITALS: BP 160/89
[2019-07-29 12:00] VITALS: BP 126/68
[2019-07-29 16:00] VITALS: BP 136/78
[2019-07-29 20:01] VITALS: BP 144/75
[2019-07-30 03:20] VITALS: BP 120/68
[2019-07-30 08:00] VITALS: BP 121/72
[2019-07-30] MEDS ORDERED: HUMALOG MI100 UNIT/6 SUBQ ×2 (14:17)
[2019-07-30] MEDS ORDERED: CEFDINIR300 MG PO (14:18)
[2019-07-30 14:39] VITALS: BP 121/72
== END 2019-07-30 15:24 | disposition home or self-care (01) | DRG 871 ==
LOC: ER 16:43 → 2N 07-25 04:30 → EROBS 07-25 04:30 → 2N 07-25 06:01 → ENTRNSPT 07-30 15:17 → EDTRNSPTSTS 07-30 15:19 → 2N 07-30 15:24
PROVIDERS: Emergency Medicine; Internal Medicine; Nurse Practitioner Family; Specialist; ADMIT Internal Medicine
PROC: 009U3ZX Drainage of Spinal Canal, Percutaneous Approach, Diagnostic (ICD-10-PCS; principal; 2019-07-25)
PROC: 02HV33Z Insertion of Infusion Device into Superior Vena Cava, Percutaneous Approach (ICD-10-PCS; 2019-07-27)
PROC: B548ZZA Ultrasonography of Superior Vena Cava, Guidance (ICD-10-PCS; 2019-07-27)
DX: A41.51 Sepsis due to Escherichia coli [E. coli] (principal); J69.0 Pneumonitis due to inhalation of food and vomit; N17.9 Acute kidney failure, unspecified; N12 Tubulo-interstitial nephritis, not specified as acute or chronic; A87.9 Viral meningitis, unspecified; E11.65 Type 2 diabetes mellitus with hyperglycemia; E78.5 Hyperlipidemia, unspecified; E11.51 Type 2 diabetes mellitus with diabetic peripheral angiopathy without gangrene; R51 Headache; I10 Essential (primary) hypertension; E66.9 Obesity, unspecified; E11.42 Type 2 diabetes mellitus with diabetic polyneuropathy; E11.319 Type 2 diabetes mellitus with unspecified diabetic retinopathy without macular edema; Z79.4 Long term (current) use of insulin; Z90.49 Acquired absence of other specified parts of digestive tract; Z90.710 Acquired absence of both cervix and uterus; Z95.820 Peripheral vascular angioplasty status with implants and grafts; Z98.891 History of uterine scar from previous surgery; Z79.899 Other long term (current) drug therapy; Z79.82 Long term (current) use of aspirin; Z68.30 Body mass index [BMI] 30.0-30.9, adult; Z79.84 Long term (current) use of oral hypoglycemic drugs; Z79.01 Long term (current) use of anticoagulants
CPT/HCPCS: 10081; 27000

== ENCOUNTER 2019-08-02 15:28 | Inpatient (IN) | payer OTHER ==
[~2019-08-02] VITALS: Ht 157.5 cm; Wt 81.0 kg
[2019-08-02 15:28] VITALS: BP 145/89
[~2019-08-02 15:28] MED LIST changes: +ASA81BEC PO; +ATORVASTATIN CA80 MG PO; +CEFDINIR300 MG PO; +HUMALOG MI100 UNIT/6 SUBQ; +LANTUS SOL100 UNIT/1 SUBQ
[2019-08-02 16:28] LABS: ABSOLUTE NEUTROPHILS 4.9 thou/uL (1.4-8.2); EOSINOPHILS 0.6 % (0.0-3.0); HEMATOCRIT 37.1 % (37.0-47.0); HEMOGLOBIN 12.3 gm/dL (12.0-15.0); LYMPHOCYTES 24.1 % (24.0-44.0); MCH 29.9 pg (26.0-34.0); MCHC 33.1 g/dL (28.0-37.0); MCV 90.4 fL (80.0-100.0); MONOCYTES 8.8 % (1.0-8.0); PLATELET COUNT 524 thou/uL (150-400); POLYS 65.5 % (36.0-66.0); RBC 4.11 mil/uL (4.20-5.00); RDW 13.8 % (10.5-14.5); WBC 7.5 thou/uL (4.0-11.0)
[2019-08-02 16:39] LABS: CALCIUM 9.3 mg/dL (8.5-10.1); CREATININE 0.9 mg/dL (0.6-1.0); POTASSIUM 3.5 mmol/L (3.5-5.1)
[2019-08-02 16:49] LABS: ALBUMIN 2.5 g/dL (3.4-5.0); TOTAL BILIRUBIN 0.5 mg/dL (<0.1-1.0); TOTAL PROTEIN 7.5 g/dL (6.4-8.2); TROPONIN-I 0.31 ng/mL (<0.06)
[2019-08-02 17:24] LABS: BE(vivo) 6.2 mmol/L (-2 to +3); HCO3 31.1 mmol/L (22.0-26.0); PCO2 45.6 mmHg (35.0-45.0); pH 7.451 (7.360-7.450); sO2 83.6 % (92.0-98.0)
[2019-08-02 18:25] LABS: URINE BILIRUBIN NEGATIVE (Negative); URINE BLOOD TRACE (Negative); URINE CLARITY CLEAR; URINE COLOR YELLOW; URINE GLUCOSE-RANDOM* 2+ (Negative); URINE KETONES NEGATIVE (Negative); URINE LEUKOCYTES-REFLEX NEGATIVE (Negative); URINE NITRITE-REFLEX NEGATIVE (Negative); URINE PROTEIN (DIPSTICK) NEGATIVE (Negative); URINE UROBILINOGEN 0.2 E.U./dl (0.2-1.0)
[2019-08-02 19:46] VITALS: BP 140/82
[2019-08-02 21:05] VITALS: BP 129/104
[2019-08-02 21:45] VITALS: BP 135/82
[2019-08-03] VITALS (13 sets, daily range): BP systolic 122–143; BP diastolic 67–98
[2019-08-03 04:53] LABS: HEMATOCRIT 34.9 % (37.0-47.0); HEMOGLOBIN 11.4 gm/dL (12.0-15.0); MCH 29.9 pg (26.0-34.0); MCHC 32.8 g/dL (28.0-37.0); MCV 91.2 fL (80.0-100.0); RBC 3.83 mil/uL (4.20-5.00); RDW 13.9 % (10.5-14.5); WBC 6.7 thou/uL (4.0-11.0)
[2019-08-03 05:06] LABS: CALCIUM 8.7 mg/dL (8.5-10.1); CREATININE 0.8 mg/dL (0.6-1.0)
[2019-08-03 08:43] LABS: CHOLESTEROL 124 mg/dL (<200); HDL CHOLESTEROL 24 mg/dL (>40); LDL CHOLESTEROL 74 mg/dL (<100); TC:HDL 5.2 Ratio (Not establshd); TRIGLYCERIDE 131 mg/dL (<150); VLDL 26 mg/dL (<40)
--- NOTE | 2019-08-03 11:33 | 2DMMODE ---
[facility] [address] [place] [address] 2 D/M-MODE ECHOCARDIOGRAM Name: ÓSCAR HARMON Room #: 212-P ADM IN M.R.#: [id number] Admission: 08/02/19 Attend Phys: Sylvain Griffiths Discharge: Date of : 67 Report #: [id number] THIS REPORT FOR: //name// APPROVED REPORT Study performed: 08/03/2019 09:24:10 EXAM: Comprehensive 2D, Doppler, and color-flow Echocardiogram Patient Location: Bedside Room #: [facility] Status: routine BSA: 1.74 HR: 96 bpm BP: 131/76 mmHg Rhythm: NSR Other Information Study Quality: Good Indications Congestive Heart Failure Elevated troponin. Hx: PVD, DM, HLP. 2D Dimensions RVDd: 32.58 mm IVSd: 10.12 (7-11mm) LVOT Diam: 19.20 (18-24mm) LVDd: 51.92 mm PWd: 10.09 (7-11mm) Ascending Ao: 34.66 (22-36mm) LVDs: 43.01 (25-40mm) Aortic Root: 32.90 mm Volumes Left Atrial Volume (Systole) Single Plane 4CH: 51.51 mL Single Plane 2CH: 66.86 mL LA ESV Index: 36.00 mL/m2 Aortic Valve AoV Peak [place].: 1.39 m/s AO Peak Gr.: 7.68 mmHg LVOT Max P.90 mmHg LVOT Max V: 0.85 m/s GABBI Vmax: 1.78 cm2 Mitral Valve IVRT: 65.74 ms [facility] [address] [place] [address] 2 D/M-MODE ECHOCARDIOGRAM Name: ÓSCAR HARMON Room #: 212-P [facility] IN .R.#: [id number] Admission: 08/02/19 Attend Phys: Sylvain Griffiths Discharge: Date of : 67 Report #: [id number] Pulmonary Valve PV Peak [place].: 0.77 m/s PV Peak Gr.: 2.40 mmHg Pulmonary Vein P Vein S: 0.97 m/s P Vein D: 1.16 m/s P Vein S/D Ratio: 0.84 Tricuspid Valve TR Peak [place].: 3.26 m/s RAP Estimate: 10.00 mmHg TR Peak Gr.: 42.46 mmHg PA Pressure: 52.00 mmHg Left Ventricle The left ventricle is normal size. There is global hypokinesis of the left ventricle. There is normal left ventricular wall thickness. Left ventricular systolic function is moderately decreased. LVEF is 30-35%. This study is not technically sufficient to allow evaluation of the LV diastolic function. Right Ventricle The right ventricle is normal size. The right ventricular systolic function is normal. Atria Left atrium is mildly dilated. The right atrium size is normal. Aortic Valve The aortic valve is normal in structure. Leaflets are minimally calcified. Mild aortic regurgitation. There is no aortic valvular stenosis. Mitral Valve The mitral valve is normal in structure. Moderate mitral regurgitation. Tricuspid Valve The tricuspid valve is normal in structure. Mild tricuspid regurgitation. Estimated PAP is 50-55mmHg. Pulmonic Valve The pulmonary valve is normal in structure. Mild pulmonic regurgitation. [facility] [address] [place] [address] 2 D/M-MODE ECHOCARDIOGRAM Name: FAUSTINOJEANNETTEA Room #: [address] [place] [address] IN M.R.#: [id number] Admission: 08/02/19 Attend Phys: Sylvain Griffiths Discharge: Date of : 67 Report #: [id number] Great Vessels The aortic root is normal in size. The ascending aorta is normal in size. IVC is dilated and collapses <50% with inspiration. Pericardium Small pericardial effusion. Left and right pleural effusions noted. <Conclusion> The left ventricle is normal size. Left ventricular systolic function is moderately decreased. There is global hypokinesis of the left ventricle. LVEF is 30-35%. The right ventricle is normal size. Left atrium is mildly dilated. The aortic valve is normal in structure. Leaflets are minimally calcified. Mild aortic regurgitation. Moderate mitral regurgitation. Mild tricuspid regurgitation. Estimated PAP is 50-55mmHg. The aortic root is normal in size. Small pericardial effusion. Left and right pleural effusions noted. <ELECTRONICALLY SIGNED> By: Arturo Garcia MD, FACC 08/03/19 1132 31 31 Arturo Garcia MD, FACC /INF
--- NOTE | 2019-08-03 13:45 | EKG ---
[address] [address] ELECTROCARDIOGRAM REPORT Name: HARMONÓSCAR Room #: 212-P ADM IN M.R.#: [id number] Admission: 08/02/19 Attend Phys: Sylvain Mcpherson Discharge: Date of : 67 Report #: [id number] THIS REPORT FOR: //name// [facility] ED Test Date: 2019-08-02 Test Time: 17:35:29 Pat Name: ÓSCAR HARMON Department: Room: 212 Gender: F Log Buyer: betty : 1965 Requested By: Brant Billy Order Number: [id number] MD: Bienvenido Smith Measurements Intervals [place] Rate: 101 P: 45 IN: 174 QRS: 68 QRSD: 106 T: 51 QT: 384 QTc: 498 Interpretive Statements Sinus tachycardia Borderline ST depression, lateral leads Compared to ECG 04/21/2018 19:59:37 ST (T wave) deviation now present Myocardial infarct finding no longer present Electronically Signed On 08-03-2019 13:45:10 [employer] by Bienvenido Smith [email or web address] <ELECTRONICALLY SIGNED> By: Bienvenido Smith MD 08/03/19 1345 1735 1735 Bienvenido Smith MD /MOHINDER
--- NOTE | 2019-08-03 17:30 | CATHLAB ---
[facility] [address] [place] [address] INVASIVE PROCEDURE REPORT Name: ÓSCAR HARMON Room #: 212-P [facility] IN M.R.#: [id number] Admission: 08/02/19 Attend Phys: Sylvain Griffiths Discharge: Date of : 67 Report #: [id number] THIS REPORT FOR: //name// APPROVED REPORT Study performed: 08/03/2019 14:22:45 Patient Details Patient Status: In-Patient Room #: The patient is a 53 year-old female Event Personnel Arturo Garcia Director Food And Beverage, Antionette Graf RN RN, Maria Esther Roger RTR Zari Elias David Monitor, Chelle Abreu marketing operations intern Performed Right and Left Heart Cath w/or w/o Coronarie [id number] [facility] Aortogram Abdominal Peripheral Angio 810214 Renal Bilateral Peripheral Angiography [id number] CVRENALBIL Indication Chest pain Procedure Narrative The Right Groin^ was infiltrated with 1% Lidocaine subcutaneous anesthesia. A PINNACLE 6FR Sheath #[id number] sheath was inserted into the . Coronary angiography was performed using coronary diagnostic catheters. The right coronary system was accessed and visualized with a JR4 catheter. The left coronary system was accessed and visualized with a JL4 catheter. The left ventricle was accessed and visualized with a PIGTAIL catheter. Left ventriculogram was performed in 30 degree projection. An aortogram of the abdominal aorta was performed. Closure device was deployed with a 6 Fr MYNXGRIP 6/7F #[id number]. The patient tolerated the procedure well and there were no complications associated with the procedure. There was no hematoma. Intraoperative Conscious Sedation Sedation start time: 14.51 Case end Time: 15.37 Fentanyl 50 mcg Versed 1 mg Fluoro Time: 4.10 minutes Dose: DAP 6525.00 cGycm2 698 mGy Contrast Type and Amount: Omnipaque 125 ml [facility] [place] [place] [address] INVASIVE PROCEDURE REPORT Name: ÓSCAR HARMON Room #: 212-P [facility] IN ..#: [id number] Admission: 08/02/19 Attend Phys: Sylvain Griffiths Discharge: Date of : 67 Report #: [id number] Hemodynamics The right atrial mean pressure is 22 mmHg. The right ventricular pressure is 57/13 mmHg. The pulmonary artery pressure is 45/27 mmHg with a mean of 34 mmHg. The mean pulmonary capillary wedge pressure is 31 mmHg. The aortic pressure is 158/78 mmHg with a mean of 72 mmHg. The left ventricular pressure is 146/22 mmHg with a mean of mmHg. The left ventricular end diastolic pressure is 33 mmHg. The cardiac output using thermo method is 3.85 L/min. The cardiac index using thermo method is 2.22 L/min/m2. Conclusion #1 mildly dilated left ventricle with moderate global hypokinesis with an inferior basilar akinetic segment EF 30-35% #2 abdominal aorta is mildly ectatic and diffusely diseased no aneurysm is noted #3 selective renal angiography left renal artery 30-40% ostial 20% right renal artery diffuse and attenuated distal renal vasculature is noted #4 distal left main has a 70% lesion giving rise to LAD and circumflex #5 the LAD is significant proximal calcification and moderately severe stenosis is noted a better preserved distal vessel distal half around the apex. This is extensive disease diabetic vessel. #6 there is a proximal OM branches mild disease and moderate distribution the [place] circumflex is subtotaled. #7 the proximal mid right is total occlusion. No collateral filling is noted to this area. # 8 successful right heart catheterization with hemodynamics above. Significant volume overload pulmonary hypertension noted. Indications and plan: Continue aggressive risk factor modification aggressive diuresis. No clear evidence for intervention will want to improve hemodynamics. Consider distal left main intervention to improve inflow but moderately severe diffuse disease in the left system no clear target otherwise noted. Transfer back to CCU in guarded condition. <ELECTRONICALLY SIGNED> By: Arturo Garcia MD, FACC 08/03/191729 29 29 Arturo Garica MD, FACC /INF
[2019-08-04 00:05] VITALS: BP 110/58
[2019-08-04 04:23] LABS: ALBUMIN 2.3 g/dL (3.4-5.0); CALCIUM 8.9 mg/dL (8.5-10.1); CREATININE 0.7 mg/dL (0.6-1.0); PHOSPHORUS 3.2 mg/dL (2.5-4.9); POTASSIUM 3.1 mmol/L (3.5-5.1)
[2019-08-04 04:40] VITALS: BP 135/62
[2019-08-04 04:43] LABS: ABSOLUTE NEUTROPHILS 4.7 thou/uL (1.4-8.2); BASOPHILS 0.4 % (0.0-2.0); EOSINOPHILS 0.9 % (0.0-3.0); HEMOGLOBIN 11.2 gm/dL (12.0-15.0); LYMPHOCYTES 20.2 % (24.0-44.0); MCV 90.9 fL (80.0-100.0); MONOCYTES 9.1 % (1.0-8.0); PLATELET COUNT 517 thou/uL (150-400); POLYS 69.4 % (36.0-66.0); RBC 3.74 mil/uL (4.20-5.00); RDW 13.8 % (10.5-14.5); WBC 6.7 thou/uL (4.0-11.0)
[2019-08-04 07:53] VITALS: BP 119/47
[2019-08-04 11:10] VITALS: BP 119/67
[2019-08-04 17:45] VITALS: BP 136/70
[2019-08-04 19:15] VITALS: BP 121/55
[2019-08-05 04:15] VITALS: BP 119/60
[2019-08-05 05:14] LABS: ALBUMIN 2.4 g/dL (3.4-5.0); CALCIUM 8.7 mg/dL (8.5-10.1); CREATININE 0.8 mg/dL (0.6-1.0); PHOSPHORUS 3.7 mg/dL (2.5-4.9); POTASSIUM 3.4 mmol/L (3.5-5.1)
[2019-08-05 05:36] LABS: GLYCOHEMOGLOBIN (HGB A1C) 13.6 % (4.8-5.6)
[2019-08-05 07:35] VITALS: BP 132/72
[2019-08-05 11:33] VITALS: BP 126/70
[2019-08-05 16:08] VITALS: BP 122/67
[2019-08-05 19:25] VITALS: BP 126/77
[2019-08-06 04:43] VITALS: BP 136/73
[2019-08-06 08:00] VITALS: BP 104/59
[2019-08-06] MEDS ORDERED: TORSEMIDE20 MG PO (08:02)
[2019-08-06] MEDS ORDERED: COZAAR 50 MG TA50 M1 PO (08:02)
[2019-08-06] MEDS ORDERED: COREG6.25 MG PO (08:02)
[2019-08-06] MEDS ORDERED: KLOR-CON M2020 MEQ PO (08:02)
[2019-08-06] MEDS ORDERED: HUMALOG MI100 UNIT/6 SUBQ ×2 (09:12)
--- NOTE | 2019-08-06 11:02 | HC ---
[facility] [place] [address] CONSULTATION Name: HARMONÓSCAR Room #: 212-P ADM IN M.R.#: [id number] Admission: 08/02/19 Attend Phys: Sylvain Mcpherson Discharge: Date of : 67 Report #: [id number] THIS REPORT FOR: //name// CC: NASRA physician/PCP Sylvain Mcpherson DATE OF SERVICE: 08/05/2019 ENDOCRINE CONSULTATION REASON FOR CONSULTATION: Uncontrolled type 2 diabetes mellitus. CONSULTING PHYSICIAN: Dr. Mcpherson HISTORY OF PRESENT ILLNESS: This is a 53-year-old female patient whose medical background is significant for type 2 diabetes mellitus, hyperlipidemia and hypertension, who presented to the ER on the day of admission with complaints of progressive shortness of breath and having been told by her doctor that she has excess fluid in her lungs. It is worth noting that the patient was admitted recently to [facility] with the issue of generalized pains and aches and there was at that time a concern about viral meningitis that was ruled out. At that time, I saw her for type 2 diabetes mellitus and she had some therapeutic changes made. We adjusted her regimen to where she would use human 70/30 insulin at home at a dose of 35 units twice a day. She notes that she had used that at home with a good bit of success in the week or so that she was at home for with blood glucose remaining controlled and without hypoglycemia. The patient's background is also noted for hypertension and hyperlipidemia, for which she is medicated. REVIEW OF SYSTEMS: CONSTITUTIONAL: Fatigue, tiredness. No fever, no chills, no changes in body weight. HEENT: Negative for sinus pain, congestion, ear drainage. PULMONARY: Shortness of breath and cough. No hemoptysis. CARDIAC: Negative for chest pain, palpitations, but noted for dyspnea on exertion, lower extremity swelling. GASTROINTESTINAL: Abdominal distention, discomfort, nausea, but no vomiting. NEUROLOGY: Negative for loss of consciousness, seizure activity or frequent severe headaches. PSYCHIATRIC: Negative for delusions, hallucinations. SKIN: Negative for rash, ulceration or other major changes. Otherwise, review of systems noncontributory other than those mentioned in HPI. [facility] [address] [place] [address] CONSULTATION Name: ÓSCAR HAROMN Room #: 212-P [facility] IN M.R.#: [id number] Admission: 08/02/19 Attend Phys: Sylvain Mcpherson Discharge: Date of : 67 Report #: [id number] PAST MEDICAL HISTORY: 1. Type 2 diabetes mellitus. 2. Hypertension. 3. Hyperlipidemia. 4. History of pyelonephritis. 5. History of bacteremia little over a week ago. 6. Peripheral vascular disease, status post stent placement in her femoral artery. PAST SURGICAL HISTORY: Noted for x 4, stent placement in femoral artery, hysterectomy and cholecystectomy. OUTPATIENT MEDICATIONS: Include: 1. Human 70/30 insulin at a dose of 35 units b.i.d. 2. Plavix 75 mg daily. 3. Aspirin 81 mg daily. 4. Atorvastatin 80 mg q. p.m. ALLERGIES: The patient has no known drug allergies. FAMILY HISTORY: Noncontributory. SOCIAL HISTORY: The patient has never smoked. Denies use of alcohol or illicit drugs. PHYSICAL EXAMINATION: GENERAL: Pleasant female patient who is not in apparent pain or distress. VITAL SIGNS: Blood pressure is 126/70 mmHg, heart rate is 84 beats per minute, respirations 17 per minute, temperature 37.1 degrees. CONSTITUTIONAL: She appears comfortable, not in apparent distress. HEENT: Anicteric sclerae. Intact extraocular motions. NECK: Supple, without JVD, carotid bruits or lymphadenopathy. I do not appreciate thyromegaly. CHEST: Noted for moderate entry bilaterally with scattered rales and rhonchi. HEART: Regular rate and rhythm without murmurs or gallops. ABDOMEN: Soft and lax without tenderness or organomegaly. She has active bowel sounds. EXTREMITIES: Lower extremity exam is noted for trace ankle edema bilaterally. No skin breaks or ulcerations. Pedal pulses are appreciated. NEUROLOGIC: Awake, alert and oriented to time, place and person. The remainder of her examination is nonfocal. PSYCHIATRIC: Pleasant, interactive. Normal mood and affect. LABORATORY DATA: Blood glucose values have waxed and waned since presentation and had mostly remained above 250 mg/dL. Otherwise, she has potassium of 3.4, [address] [address] CONSULTATION Name: ÓSCAR HARMON Room #: 212-P [facility] IN M.R.#: [id number] Admission: 08/02/19 Attend Phys: Sylvain Mcpherson Discharge: Date of : 67 Report #: [id number] sodium 137, chloride 95, CO2 37, anion gap 5, BUN 11, creatinine 0.8, AST 34, total bilirubin 0.5, EGFR 75. Troponin 0.37. Total cholesterol is 124, triglycerides 131, HDL 24, LDL 74. INR 1.0. White blood count 6.7, hemoglobin 11.2, hematocrit 34, platelets 517. TSH 4.839. Hemoglobin A1c 13.6%. ASSESSMENT AND PLAN: 1. Type 2 diabetes mellitus, uncontrolled at baseline. We had managed to establish excellent control during her most recent hospital stay on basal bolus regimen. However, the patient made a very good point that she is unable to afford these analog types of insulin at home and wait his ordered human 70/30 insulin at a dose of 35 units b.i.d. This has not been activated during this hospital stay. The patient develops severe hyperglycemia on a Humalog supplemental scale only. I will add Humalog 75/25 insulin at a dose of 28 units b.i.d. a.c., breakfast and dinner while we maintain support with Humalog supplemental scale and monitor blood glucose a.c. and at bedtime. I noted the initiation of metformin therapy which is certainly reasonable. Given the patient's dependency on high dose insulin therapy, I will discontinue glipizide, however. 2. Hypertension. The patient's level of blood pressure control is adequate on the current regimen of carvedilol and losartan, she is to continue with the same. 3. Hyperlipidemia. The patient's level of control on atorvastatin therapy is adequate. She is to continue with the same. I have reviewed clinical care notes, laboratory data, radiologic data and other clinically pertinent information from the patient's chart for over 35 minutes. I certainly appreciate this consultation by Dr. Mcpherson. <ELECTRONICALLY SIGNED> By: Maribell Alvarado MD 08/06/19 1102 1215 45 Maribell Alvarado MD /nt
[2019-08-06 11:10] LABS: CALCIUM 9.4 mg/dL (8.5-10.1); CREATININE 0.9 mg/dL (0.6-1.0); POTASSIUM 3.5 mmol/L (3.5-5.1)
[2019-08-06 12:00] VITALS: BP 115/65
[2019-08-06 15:56] VITALS: BP 115/65
== END 2019-08-06 16:44 | disposition home or self-care (01) | DRG 280 ==
LOC: ER 15:28 → EROBS 19:44 → 2N 19:44
PROVIDERS: Emergency Medicine; Internal Medicine Cardiovascular Disease; Nurse Practitioner Adult Health; Nurse Practitioner Family; ADMIT Hospitalist
PROC: B4181ZZ Fluoroscopy of Bilateral Renal Arteries using Low Osmolar Contrast (ICD-10-PCS; principal; 2019-08-03)
PROC: B2151ZZ Fluoroscopy of Left Heart using Low Osmolar Contrast (ICD-10-PCS; principal; 2019-08-03)
PROC: 4A023N8 Measurement of Cardiac Sampling and Pressure, Bilateral, Percutaneous Approach (ICD-10-PCS; principal; 2019-08-03)
PROC: B2111ZZ Fluoroscopy of Multiple Coronary Arteries using Low Osmolar Contrast (ICD-10-PCS; principal; 2019-08-03)
PROC: B4101ZZ Fluoroscopy of Abdominal Aorta using Low Osmolar Contrast (ICD-10-PCS; principal; 2019-08-03)
DX: I21.4 Non-ST elevation (NSTEMI) myocardial infarction (principal); J81.0 Acute pulmonary edema; J96.01 Acute respiratory failure with hypoxia; J18.9 Pneumonia, unspecified organism; I42.9 Cardiomyopathy, unspecified; E78.5 Hyperlipidemia, unspecified; E11.51 Type 2 diabetes mellitus with diabetic peripheral angiopathy without gangrene; I50.9 Heart failure, unspecified; E11.65 Type 2 diabetes mellitus with hyperglycemia; I11.0 Hypertensive heart disease with heart failure; E87.6 Hypokalemia; Z79.82 Long term (current) use of aspirin; Z79.899 Other long term (current) drug therapy; Z90.49 Acquired absence of other specified parts of digestive tract; Z90.710 Acquired absence of both cervix and uterus; Z95.820 Peripheral vascular angioplasty status with implants and grafts
CPT/HCPCS: 10081

== ENCOUNTER 2019-09-18 13:50 | Emergency (ER) | payer OTHER ==
[~2019-09-18] VITALS: Ht 157.5 cm; Wt 113.4 kg
[~2019-09-18 13:50] MED LIST changes: +COREG6.25 MG PO; +COZAAR 50 MG TA50 M1 PO; +KLOR-CON M2020 MEQ PO; +TORSEMIDE20 MG PO
[2019-09-18 14:56] LABS: ABSOLUTE NEUTROPHILS 3.3 thou/uL (1.4-8.2); BASOPHILS 0.7 % (0.0-2.0); EOSINOPHILS 1.7 % (0.0-3.0); HEMATOCRIT 39.6 % (37.0-47.0); LYMPHOCYTES 28.3 % (24.0-44.0); MCHC 32.9 g/dL (28.0-37.0); MCV 88.2 fL (80.0-100.0); MONOCYTES 10.2 % (1.0-8.0); PLATELET COUNT 288 thou/uL (150-400); POLYS 59.1 % (36.0-66.0); RBC 4.48 mil/uL (4.20-5.00); RDW 14.2 % (10.5-14.5); WBC 5.5 thou/uL (4.0-11.0)
[2019-09-18 15:09] LABS: CALCIUM 9.8 mg/dL (8.5-10.1); CREATININE 1.5 mg/dL (0.6-1.0); MAGNESIUM 2.1 mg/dL (1.8-2.4); POTASSIUM 4.4 mmol/L (3.5-5.1)
[2019-09-18 16:07] LABS: URINE BILIRUBIN NEGATIVE (Negative); URINE BLOOD NEGATIVE (Negative); URINE COLOR YELLOW; URINE GLUCOSE-RANDOM* 3+ (Negative); URINE KETONES NEGATIVE (Negative); URINE LEUKOCYTES-REFLEX TRACE (Negative); URINE PROTEIN (DIPSTICK) NEGATIVE (Negative); URINE SPECIFIC GRAVITY <= 1.005 (1.005-1.035); URINE UROBILINOGEN 0.2 E.U./dl (0.2-1.0)
[2019-09-18 16:11] LABS: URINE CLARITY SLIGHTLY CLOUDY; URINE NITRITE-REFLEX POSITIVE (Negative)
[2019-09-18 16:18] LABS: AMP/METHAMP Negative (Negative); BARBITURATES Negative (Negative); BENZODIAZEPINES Negative (Negative); COCAINE Negative (Negative); METHADONE Negative (Negative); OPIATES Negative (Negative); PCP Negative (Negative)
[2019-09-18 16:20] LABS: SQUAMOUS >10 Many /LPF (0-3)
[2019-09-18 16:21] LABS: BACTERIA-REFLEX >30 Many /HPF (None Seen); CASTS None Seen /LPF (None Seen); CRYSTALS None Seen /LPF (None Seen); URINE WBC-REFLEX >25 Many /HPF (0-5)
[2019-09-18 16:22] LABS: URINE RBC None Seen /HPF (0-2); YEAST-REFLEX Present (None Seen)
[2019-09-18 17:00] LABS: URINE BILIRUBIN NEGATIVE (Negative); URINE BLOOD TRACE (Negative); URINE CLARITY CLEAR; URINE COLOR YELLOW; URINE GLUCOSE-RANDOM* 3+ (Negative); URINE KETONES NEGATIVE (Negative); URINE LEUKOCYTES-REFLEX NEGATIVE (Negative); URINE NITRITE-REFLEX NEGATIVE (Negative); URINE PROTEIN (DIPSTICK) NEGATIVE (Negative); URINE UROBILINOGEN 0.2 E.U./dl (0.2-1.0)
[2019-09-18 17:38] VITALS: BP 147/72
--- NOTE | 2019-09-19 08:08 | EKG ---
[facility] [place] [address] ELECTROCARDIOGRAM REPORT Name: ÓSCAR HARMON Room #: DEP [facility]#: [id number] Admission: 09/18/19 Attend Phys: Discharge: 09/18/19 Date of : 67 Report #: [id number] THIS REPORT FOR: cc: NASRA Anaya family physician/PCP NASRA - Jaclyn family physician/PCP Tenzin Garcia MD [facility] THIS REPORT FOR: //name// [facility] ED Test Date: 2019-09-18 Test Time: 14:28:04 Pat Name: ÓSCAR HARMON Department: Room: Gender: Campground Attendant: [facility] : 1965 Requested By: Brant Billy Order Number: [id number] MD: Tenzin Garcia Measurements Intervals [place] Rate: 82 P: 44 ID: [id number] QRS: 33 QRSD: 101 T: 110 QT: 390 QTc: 456 Interpretive Statements Sinus rhythm Inferior infarct, old T-wave abnormality, consider lateral ischemia Compared to ECG 08/02/2019 17:35:29 lateral T wave inversion is now present Electronically Signed On 09-19-2019 8:07:09 MRI SPECIALIST by Tenzin Garcia [email or web address] <ELECTRONICALLY SIGNED> By: Tenzin Garcia MD, [facility] 09/19/19 0807 1428 1428 Tenzin Garcia MD, [facility] /EPI
== END 2019-09-18 17:43 | disposition home or self-care (01) ==
LOC: ER 13:50
PROVIDERS: Emergency Medicine
DX: E11.65 Type 2 diabetes mellitus with hyperglycemia (principal); R51 Headache; R41.0 Disorientation, unspecified; E11.51 Type 2 diabetes mellitus with diabetic peripheral angiopathy without gangrene; I10 Essential (primary) hypertension; E78.5 Hyperlipidemia, unspecified; Z90.710 Acquired absence of both cervix and uterus; Z90.49 Acquired absence of other specified parts of digestive tract; Z79.82 Long term (current) use of aspirin; Z79.899 Other long term (current) drug therapy; Z79.4 Long term (current) use of insulin

== ENCOUNTER 2020-05-11 11:33 | Inpatient (IN) | payer MEDICAID ==
[~2020-05-11] VITALS: Ht 157.5 cm; Wt 74.6 kg
[2020-05-11 11:37] VITALS: BP 123/65
[2020-05-11 14:20] LABS: HEMOGLOBIN 10.1 gm/dL (12.0-15.0)
[2020-05-11 14:23] LABS: ABSOLUTE NEUTROPHILS 7.1 thou/uL (1.4-8.2); BASOPHILS 0.5 % (0.0-2.0); EOSINOPHILS 1.6 % (0.0-3.0); LYMPHOCYTES 17.8 % (24.0-44.0); MCH 29.9 pg (26.0-34.0); MCHC 33.8 g/dL (28.0-37.0); MCV 88.5 fL (80.0-100.0); MONOCYTES 9.4 % (1.0-8.0); PLATELET COUNT 518 thou/uL (150-400); POLYS 70.7 % (36.0-66.0); RBC 3.39 mil/uL (4.20-5.00); RDW 12.3 % (10.5-14.5); WBC 10.1 thou/uL (4.0-11.0)
[2020-05-11 14:34] LABS: APTT 32.9 Seconds (24.5-32.8); INR 1.1; PROTIME 11.3 Seconds (9.3-11.4)
[2020-05-11 14:35] LABS: CALCIUM 9.5 mg/dL (8.5-10.1); CREATININE 1.1 mg/dL (0.6-1.0); POTASSIUM 4.5 mmol/L (3.5-5.1)
[2020-05-11 14:40] LABS: ALBUMIN 2.8 g/dL (3.4-5.0); TOTAL BILIRUBIN 0.4 mg/dL (0.2-1.0); TOTAL PROTEIN 8.2 g/dL (6.4-8.2)
[2020-05-11] MEDS ORDERED: NOVOLOG FL100 UNIT/M SUBQ (16:00)
[2020-05-11] MEDS ORDERED: LANTUS SUBQ (16:01)
[2020-05-11 18:09] VITALS: BP 120/56
--- NOTE | 2020-05-11 18:32 | NUR ---
ATTEMPTED TO CALL REPORT AT THIS TIME TO 4S. NURSE ASKED TO CALL BACK IN 5 MINUTES
[2020-05-11 18:52] VITALS: BP 137/73
[2020-05-11 19:45] VITALS: BP 132/73
--- NOTE | 2020-05-12 05:58 | NUR ---
PT ARRIVED ON UNIT FROM ER AT 191. ADMITTED WITH RIGHT FOOT CELLULITIS AND GANGRENE. AMBULATING TO BATHROOM WITH STANDBY ASSIST AND IS TOLERATING FAIR. LORTAB PROVIDING PAIN RELIEF. RESTING COMFORTABLY. NO NEEDS VOICED. CALL LIGHT WITHIN REACH. FREQUENT OBSERVATION.
[2020-05-12 06:26] LABS: OBSERVED RETIC COUNT 2.08 % (0.6-2.6)
[2020-05-12 06:28] LABS: ABSOLUTE NEUTROPHILS 5.8 thou/uL (1.4-8.2); BASOPHILS 0.5 % (0.0-2.0); EOSINOPHILS 2.8 % (0.0-3.0); HEMATOCRIT 31.2 % (37.0-47.0); HEMOGLOBIN 10.1 gm/dL (12.0-15.0); LYMPHOCYTES 16.7 % (24.0-44.0); MCH 28.9 pg (26.0-34.0); MCHC 32.5 g/dL (28.0-37.0); MCV 88.9 fL (80.0-100.0); MONOCYTES 8.2 % (1.0-8.0); PLATELET COUNT 518 thou/uL (150-400); POLYS 71.8 % (36.0-66.0); RBC 3.51 mil/uL (4.20-5.00); RDW 12.6 % (10.5-14.5); WBC 8.1 thou/uL (4.0-11.0)
[2020-05-12 06:41] LABS: ALBUMIN 2.5 g/dL (3.4-5.0); CALCIUM 9.5 mg/dL (8.5-10.1); CREATININE 0.9 mg/dL (0.6-1.0); PHOSPHORUS 3.9 mg/dL (2.5-4.9); POTASSIUM 4.3 mmol/L (3.5-5.1); TOTAL BILIRUBIN 0.5 mg/dL (0.2-1.0); TOTAL PROTEIN 7.8 g/dL (6.4-8.2)
[2020-05-12 07:05] LABS: % SATURATION 14 % (20-39); IRON 24 ug/dL (50-170); TIBC 169 ug/dL (250-450)
[2020-05-12 07:19] LABS: FOLIC ACID 18.9 ng/mL (8.6-58.9)
[2020-05-12 08:33] VITALS: BP 133/68
--- NOTE | 2020-05-12 09:48 | NUR ---
RD consult received for pt with right foot wound, necrosis. Hx DM, PVD, angio/stent, CHF. Last admit to this facility 07/2019-pt had very poor control diabetes with A1C of 14.7. Pt reports on insulin, and BG much better. No significant wt loss, usual trends 175-185 lb. States appetite is good. Pt reports hx diabetes 20 years and willing to learn "any new information on diet you have". Currently being taken off unit for test, so unable to speak further with pt. Physician indicated protein calorie malnutrition;RD defer. Sherif was on breakfast tray, feel glucerna shake more appropriate and she likes these. Rec new A1C level. Low nutrition risk, offer education at follow up as needed.
--- NOTE | 2020-05-12 10:12 | NUR ---
ASSESSMENT: CM REVIEWED CHART AND SPOKE WITH PATIENT. PT IS ALERT AND ORIENTED X4. PT IS ADMITTED DUE TO RIGHT FOOT CELLULITIS AND IS CURRENTLY ON IV ANBX. WOUND CARE IS CONSULTED. PT REPORTS SHE WAS JUST AT [facility] LAST WEEK AND GOT AN ANGIOGRAM. PT REPORTS LIVING IN AN APT WITH HER SIGNIFICANT OTHER. PT REPORTS NO STEPS SHE HAS TO USE. PT REPORTS BEING FULLY INDEPENDENT WITH ADLS AND AMBULATION. PT STATES SHE HAS NO INSURANCE OR PCP BUT HAS BEEN FOLLOWING UP AT [facility] AND REPORTS THEY ARE ASSISTING HER IN GETTING A PCP. PT DENIES THE NEED FOR SAFETY NET PACKET. CM WILL CONTINUE TO FOLLOW TO ASSIST PT NEEDED. WOUND CARE IS TO SEE PATIENT.
--- NOTE | 2020-05-12 14:43 | NUR ---
ASSUMED CARES AT 0700. PT AWAKE, ALERT AND ORIENTED*4. DENIES PAIN, VITALS REMAIN STABLE. RIGHT LITTLE TOE REMAINS DRY AND TANVIR. PT UP WITH SBA, WBAT ON RLE. IV RIGHT FOREARM REMAIN INTACT AND PATENT, IV ANTIBIOTICS AND FLUIDS ADMINISTERED SCHEDULED. Q1H VISUAL CHECKS. CALL LIGHT WITHIN REACH
[2020-05-12 19:48] VITALS: BP 119/65
[2020-05-13 00:06] LABS: GLYCOHEMOGLOBIN (HGB A1C) 11.5 % (4.8-5.6)
[2020-05-13 00:06] LABS: GLYCOHEMOGLOBIN (HGB A1C) 11.3 % (4.8-5.6)
--- NOTE | 2020-05-13 06:00 | NUR ---
ASSUMED CARE OF PT AT 1900HRS. PT AOX4 AND LETS NEEDS BE KNOWN. PT IS UP AD SATISH. PT REPORTED SOME PAIN AND WAS TREATED WITH PRN PAIN MEDS. ABX TREATMENT CONTINUED. PT WAS HERMINIO TO GET COMFORTABLE AND SLEEP PART OF THE SHIFT. VSS AND NO S/S OF ACUTE DISTRESS. WILL CONTINUE TO MONITOR.
[2020-05-13 08:00] VITALS: BP 131/71
--- NOTE | 2020-05-13 09:01 | NUR ---
LATE NOTE: DE CONSULT [id number] WAS COMPLETED BY FR. GARNER ON 05/12/2020.
--- NOTE | 2020-05-13 14:03 | NUR ---
ON-GOING ASSESSMENT: CM REVIEWED CHART. PT WAS SEEN BY IR. PLANS ARE FOR PATIENT TO HAVE A REPEAT ANGIO TOMORROW AND POSSIBLE INTERVENTION. CM WILL CONTINUE TO FOLLOW TO ASSIST NEEDED.
[2020-05-13 17:00] VITALS: BP 146/81
--- NOTE | 2020-05-13 18:30 | NUR ---
PT ASSESSED AT START OF SHIFT. VERY PLEASANT. UP AD SATISH. NO C/O PAIN. RT FOOT DSNG CHANGED. DR. EDUARDO HERE THIS AM TO TALK W/ PT RE ARTIOGRAM. ORTHO IN TO SEE PT THIS AFTERNOON AND TALK ABOUT AMPUTATING TOES FIRST. PT'S DTR UPDATED W/ PLAN OF CARE.
[2020-05-13 19:30] VITALS: BP 145/78
[2020-05-14] VITALS (20 sets, daily range): BP systolic 107–129; BP diastolic 55–71
--- NOTE | 2020-05-14 04:08 | NUR ---
PT DENIED PAIN O FAR.UP ADLIB IN THE ROOM.DRSG TO HER R FOOT C/D/I.STILL NEED STOOL SAMPLE ON THE PT,SHE IS AWARE OF THAT.BG MONITORED WITH COVERAGE.PT NPO AT THIS TIME FOR POSSIBLE SURGERY IN THE AM.CALL LIGHT WITHIN REACH.
[2020-05-14 06:18] LABS: HEMATOCRIT 26.7 % (37.0-47.0); HEMOGLOBIN 8.9 gm/dL (12.0-15.0); MCH 29.6 pg (26.0-34.0); MCHC 33.3 g/dL (28.0-37.0); MCV 88.9 fL (80.0-100.0); WBC 8.6 thou/uL (4.0-11.0)
[2020-05-14 06:29] LABS: POTASSIUM 4.3 mmol/L (3.5-5.1)
--- NOTE | 2020-05-14 07:58 | NUR ---
ASSUMED CARE OF PT AT 0700. PT ALERT AND ORIENTED TIMES FOUR, PT IS DANISH SPEAKING BUT UNDERSTANDS MALAY. VSS, IVF INFUSING PER ORDER. PT STATES SHE HAS SOME PAIN IN THE RIGHT TOE. PT UP AB SATISH. PT NPO FOR SURGERY X2 THIS MORNING. WILL CONTINUE TO MONITOR.
--- NOTE | 2020-05-14 12:18 | 2DMMODE ---
[address] [address] 2 D/M-MODE ECHOCARDIOGRAM Name: ÓSCAR GILMORE Room #: 247-P ADM IN M.R.#: [id number] Admission: 05/11/20 Attend Phys: Shanique Guo MD Discharge: Date of : 67 Report #: [id number] THIS REPORT FOR: cc: FAM - Family physician unknown FAM - Family physician unknown Jermaine Eli MD [facility] ~ APPROVED REPORT Study performed: 05/14/2020 11:03:37 EXAM: Comprehensive 2D, Doppler, and color-flow Echocardiogram Patient Location: ammunition assembly laborer Room #: 2 Status: stat BSA: 1.79 Other Information Study Quality: Technically Limited Indications Diabetes CAD S^P Code Left Ventricle The left ventricle is normal size. There is global hypokinesis of the left ventricle. There is akinesis in the apical wall. 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 There is normal left ventricular wall thickness. Left ventricular ejection fraction is severely decreased. There is an apical thrombus. LVEF is 15-20%. Right Ventricle The right ventricle is normal size. The right ventricular systolic function is normal. Atria Left atrium mildly dilated The right atrium size is normal. Aortic Valve The aortic valve is not well visualized. Mitral Valve [address] [address] 2 D/M-MODE ECHOCARDIOGRAM Name: ÓSCAR GILMORE Room #: 247-P ADM IN M.R.#: [id number] Admission: 05/11/20 Attend Phys: Shanique Guo, Discharge: Date of : 67 Report #: [id number] The mitral valve is normal in structure. Tricuspid Valve The tricuspid valve is normal in structure. Great Vessels The aortic root is normal in size. Pericardium There is no pericardial effusion. <Conclusion> Left ventricle size in the upper limits of normal, normal wall thickness Severe global hypokinesis more prominent in the distal septum, apex akinetic. Ejection fraction 15-20% Echogenicity at the apex suspicious for a clot - 0.75 cm Left atrium mildly dilated Normal right atrial size Normal mitral valve structure and function Mild aortic valve calcification without stenosis No pericardial effusion <ELECTRONICALLY SIGNED> By: Jermaine Eli MD, FACC 05/14/201216 16 16 Jermaine lEi MD, FACC /INF
--- NOTE | 2020-05-14 12:54 | EKG ---
[facility] [place] [address] ELECTROCARDIOGRAM REPORT Name: ÓSCAR GILMORE Room #: [facility]-P ADM IN M.R.#: [id number] Admission: 05/11/20 Attend Phys: Shanique Guo MD Discharge: Date of : 67 Report #: [id number] THIS REPORT FOR: cc: FAM - Family physician unknown FAM - Family physician unknown Tenzin Garcia MD [facility] THIS REPORT FOR: //name// [facility] Test Date: 2020-05-14 Test Time: 10:45:22 Pat Name: ÓSCAR GILMORE Department: Room: [facility] Gender: F Gear Setter: CAREN : 1965 Requested By: Shanique Guo Order Number: [id number] MD: Tenzin Garcia Measurements Intervals [place] Rate: 109 P: 71 FL: 176 QRS: 64 QRSD: 103 T: 141 QT: 306 QTc: 413 Interpretive Statements Sinus tachycardia Repol abnrm suggests lateral ischemia Baseline wander in lead(s) V3 Compared to ECG 09/18/2019 14:28:[address] and T wave abnormality is more pronounced Inferior Q waves are less prominent Electronically Signed On 05-14-2020 12:54:10 CDT by Tenzin Garcia [email or web address] <ELECTRONICALLY SIGNED> By: Tenzin Garcia MD, FACC 05/14/20 1254 1045 1045 Tenzin Garcia MD, FAC /EPI
--- NOTE | 2020-05-14 13:16 | NUR ---
ON-GOING ASSESSMENT: CM REVIEWED CHART. PT WAS OPEN TO HH IF NEEDED FOR SOME ADDITIONAL HELP IF SHE HAS POSSIBLE AMPUTATION OF TOE BUT HAS NO INSURANCE. CM SPOKE WITH [facility] WHO REPORTS THEY CAN DO 2 STEVE VISITS IF A HOSPITALIST WILL AGREE TO FOLLOW FOR ORDERS. PER CHRAT PT HAD CATH/ANGRIOGRAM WITH DR. MANCIA THIS AM AND WENT UNRESPONSIVE. CPR WAS PERFORMED. PT HAD RIGHT AND LEFT HEART CATH WITH DR. ERVIN AND THEN WAS TRANSFERED TO ICU AND IS ON THE BIPAP. PT WAS TO ALSO LIKELY HAVE SURGERY ON GANGRENEOUS TOE BUT UNCLEAR ON PLANS AT THIS POINT. CM WILL COTNINUE TO FOLLOW AND NOTIFIED CM IN ICU.
--- NOTE | 2020-05-14 13:23 | NUR ---
THIS CHIEF PORT DIRECTOR RESPONDED TO CODE BLUE IN CV LAB ROOM 2. THIS CHIEF PORT DIRECTOR PRAYED FOR THE PATIENT AND STAFF FROM THE HALLWAY OUTSIDE THE ROOM. I ATTEMTPED TO FIND HER VISITOR WHO APARENTLY WAS WAITING FOR HER BACK IN ROOM 438, BUT HAD LEFT. I WAS ABLE TO GIVE HIS CONTACT INFORMATION TO DR. MANCIA, WHO WAS THE PHYSICAN IN THE NANOTECHNOLOGIST. BELINDA TORRES .
[2020-05-14 13:28] LABS: HEMATOCRIT 29.3 % (37.0-47.0); HEMOGLOBIN 9.6 gm/dL (12.0-15.0); MCHC 32.8 g/dL (28.0-37.0); MCV 88.6 fL (80.0-100.0); RBC 3.3 mil/uL (4.20-5.00); RDW 12.8 % (10.5-14.5); WBC 19.4 thou/uL (4.0-11.0)
[2020-05-14 13:42] LABS: INR 1.2; PROTIME 11.8 Seconds (9.3-11.4)
--- NOTE | 2020-05-14 14:47 | NUR ---
VASCULAR ACCESS CONSULTED FOR PICC LINE.PT'S LABS,MEDS,HISTORY,ORDER AND CONSENT VERIFIED. SALTY BASILIC WAS WIDELY PATENT WITH USG. 5FR TL POWER PICC TRIMMED TO 42CM INSERTED TO 3CM EXTERNAL. CXR CONFIRMED PICC IN DISTAL SVC. PICC RELEASED FOR IMMEDIATE USE PER PROTOCOL TO LINDEN GIBSON. PT TOLERTAED WELL
[2020-05-14 15:33] LABS: APTT 29.6 Seconds (24.5-32.8)
--- NOTE | 2020-05-14 20:21 | NUR ---
PT TX TO ICU @ 1205 FROM HYDROELECTRIC MACHINERY MECHANIC, RIGHT FEMORAL CENTRAL LINE/SHEATH IN PLACE. PT ON LEVOPHED GTT FOR BP SUPPORT. HEPARIN GTT INIATED PER [facility] POLICY/PROTOCAL. NURSING STAFF DEVELOPMENT COORDINATOR USED. PT PROGRESSING TOWARDS POC. PT AND FAMILY WERE UPDATED AND EDUCATED ON PT'S CONDITION AND POC. PT AFEBRILE, POLYUREA, NO BM, DID NOT EAT ANY OF MEAL TRAYS.
[2020-05-15] VITALS (36 sets, daily range): BP systolic 97–142; BP diastolic 43–83
--- NOTE | 2020-05-15 02:46 | NUR ---
PT AWAKE, A/O X4. DENIES PAIN OR DISCOMFORT.VSS, AFEBRILE. DRESSING TO RIGHT FOOT WOUNDS CDI, BILATERAL PEDAL PULSES PRESENT. TOES WARM TO TOUCH AND CAPILLARY REFILL <3sec. RIGHT FEMORAL CATH IN WORKING ORDER, NO HEMATOMA/BLEEDING, DRESSING CDI.RIGHT GROIN DRESSING INTACT. RESTING WELL
--- NOTE | 2020-05-15 06:18 | NUR ---
BEDBATH GIVEN EARLY THIS AM, N/V EPISODE X1- SMALL AMOUNT YELLOW GASTRIC CONTENT. PT STATES THAT SHE GETS NAUSEATED EVERY MORNING AT HOME R/T HYPERSALIVATION. ALSO MENTIONS THAT SHE DOES NOT TAKE ANY MEDS FOR IT. DENIES ABDOMINAL PAIN. BG 102. FEELING BETTER AFTER SPITTING UP
[2020-05-15 07:29] LABS: CALCIUM 8.8 mg/dL (8.5-10.1); POTASSIUM 3.7 mmol/L (3.5-5.1)
--- NOTE | 2020-05-15 10:55 | HC ---
[facility] [place] [address] CONSULTATION Name: ÓSCAR GILMORE Room #: 247-P ADM IN M.R.#: [id number] Admission: 05/11/20 Attend Phys: Shanique Guo MD Discharge: Date of : 67 Report #: [id number] THIS REPORT FOR: cc: FAM - Family physician unknown FAM - Family physician unknown Nikita Castillo MD ~ DATE OF SERVICE: 05/12/2020 CHIEF COMPLAINT: Ischemic and necrotic right fourth and fifth toes. HISTORY OF PRESENT ILLNESS: This is a 54-year-old female patient with a history of diabetes mellitus, peripheral vascular disease. She has been to multiple clinics and has recently been hospitalized at [facility] for dry gangrene of the fourth and fifth toes of the right foot. She has undergone a vascular procedure and stent placement per her history. She has been admitted due to increasing pain, redness and swelling. PAST MEDICAL HISTORY: Positive for history of diabetes mellitus, poorly controlled; congestive heart failure with an ejection fraction of 35%, sepsis, bacteremia, pyelonephritis, hyperlipidemia and hypertension. She has had previous , hysterectomy, cholecystectomy. SOCIAL HISTORY: Positive for occasional alcohol use on special occasions. She has never smoked. No recreational drug use. FAMILY HISTORY: Positive for diabetes mellitus. MEDICATIONS: Include clopidogrel, aspirin, Coreg, Cozaar, torsemide, Klor-Con. ALLERGIES: No known drug allergies. REVIEW OF SYSTEMS: CONSTITUTIONAL: The patient denies fever, chills or weight loss. NEUROLOGICAL: The patient denies focal weakness. Does have peripheral neuropathy. EYES: The patient denies visual changes, redness, or drainage. ENT: The patient denies earache, nasal drainage, sore throat. CARDIOVASCULAR: The patient denies chest pain or palpitations or diaphoresis. PULMONARY: The patient denies cough or shortness of breath. GASTROINTESTINAL: The patient denies nausea, vomiting, diarrhea or abdominal pain. ORTHOPEDIC: The patient complains of pain and necrosis of the fourth and fifth toes of the right foot. Other systems in a 14-point review of systems are negative. [facility] [address] [place] [address] CONSULTATION Name: ÓSCAR GILMORE Room #: 247-P [facility] IN ..#: [id number] Admission: 05/11/20 Attend Phys: Shanique Guo MD Discharge: Date of : 67 Report #: [id number] PHYSICAL EXAMINATION: VITAL SIGNS: At this time include temperature 98.2, pulse 98, respiratory rate 18, blood pressure 133/68. GENERAL: This is a well-developed, well-nourished female patient who appears to be in minimal distress. HEENT: Head normocephalic. Nose and throat are clear. NECK: Supple. LUNGS: Clear. HEART: Regular rate and rhythm. ABDOMEN: Soft, bowel sounds present. EXTREMITIES: Lower extremities demonstrate diminished distal pulses. Her feet are pink, warm and dry with the exception of the lateral aspect of the right foot. She has dry gangrene of the fifth toe extending over to the fourth toe as well as more proximally onto the dorsal aspect of the foot. The area is mildly tender. There is mild surrounding erythema, although the eschar. There is mostly dry and stable. NEUROLOGIC: The patient is alert and oriented and appropriate. LABORATORY DATA: Include white blood cell count 8.1 with a hemoglobin of 10.1. Sodium 143, potassium 3.7, chloride 104, CO2 of 26, BUN 14, creatinine 1.0, glucose of 84, calcium is 8.8. Hemoglobin A1c is 11.5. CLINICAL IMPRESSION: 1. Necrosis of the fourth and fifth toes in dorsal aspect of the right foot. 2. Peripheral arterial disease. 3. Diabetes, poorly controlled with hyperglycemia. 4. Hypertension. 5. Hyperlipidemia. 6. Peripheral arterial disease, status post recent angiogram and stent placement. RECOMMENDATIONS: At this point in time, the patient will clearly require some form of amputation surgery to the right foot. I am, however, concerned that her vascular status may not be maximized. Therefore, we will recommend that she be seen by Interventional Radiology for possible angiography and additional percutaneous intervention as indicated. We will recommend "Betadine paint" to the areas of necrosis with a dry gauze secondary dressing. Recommend aggressive nutritional support. She will need dietary consultation and aggressive [address] [address] CONSULTATION Name: ÓSCAR GILMORE Room #: 247-P ADM IN M.R.#: [id number] Admission: 05/11/20 Attend Phys: Shanique Guo MD Discharge: Date of : 67 Report #: [id number] management of her uncontrolled diabetes mellitus. The patient is agreeable to current plan of care and I do appreciate being asked to see her in consultation. <ELECTRONICALLY SIGNED> By: Nikita Castillo MD 05/15/20 1055 0950 1027 Nikita Castillo MD /nt
--- NOTE | 2020-05-15 18:47 | NUR ---
Took over care of patient at 0645. Patients boyfriend at bedside majority of the day. Checked patients groin at 1200 to assess for bleeding. Dressing was dry and intact. Dr. John contacted at 1400 due to nausea and vomiting. He ordered 4 mg zophran q6 hours.
[2020-05-16] VITALS (16 sets, daily range): BP systolic 101–135; BP diastolic 48–81
--- NOTE | 2020-05-16 03:19 | NUR ---
ASSUMED. PT CARE AT 1900. VSS PT A&0X4. SLEPT THROUGH THE NOC. NO COMPLAINTS. PEDAL PULSES ARE PALPABLE. NO ACTUTE EVENTS OVER NOC. REPORT CALLED TO CCU RN AT 0324 PT TO BE TRANSFERED TO CCU
[2020-05-16 04:53] LABS: ALBUMIN 2.3 g/dL (3.4-5.0); CREATININE 1.1 mg/dL (0.6-1.0); POTASSIUM 3.8 mmol/L (3.5-5.1); TOTAL BILIRUBIN 0.4 mg/dL (0.2-1.0); TOTAL PROTEIN 7.1 g/dL (6.4-8.2)
--- NOTE | 2020-05-16 05:09 | NUR ---
Pt was a transfer from ICU. Pt is stable except for compliant of nausea. No sign of distress noted. Pt is srable and laying in room. Denies pain. Scheduled meds administered. Assesment completed and documented. Continue to monitor.
--- NOTE | 2020-05-16 16:20 | CATHLAB ---
[facility] [place] [address] INVASIVE PROCEDURE REPORT Name: ÓSCAR GILMORE Room #: 210-P ADM IN M.R.#: [id number] Admission: 05/11/20 Attend Phys: Shanique Guo MD Discharge: Date of : 67 Report #: [id number] THIS REPORT FOR: cc: FAM - Family physician unknown FAM - Family physician unknown Arturo Garcia MD [facility] ~ APPROVED REPORT Study performed: 05/14/2020 10:55:19 Patient Details The patient is a 54 year-old female Event Personnel Arturo Garcia MD, Enmanuel Chamberlain RN RN, Francine Fuentes Lock, Alison RT(R)() Monitor Procedures Performed Right and Left Heart Cath w/or w/o Coronarie [id number] [facility] 13992 Mod Sed Same Phys/QHP Ea 217940 97146 Initial Mod Sed Same Phys/QHP Gr5y 432356 Art Access - R femoral artery* Procedure Narrative The patient was brought emergently to the Cardiac Catheterization Laboratory and was prepped and draped in a sterile manner. A PINNACLE 6FR Sheath #[id number] sheath was inserted into the RFA^. Coronary angiography was performed using coronary diagnostic catheters. The right coronary system was accessed and visualized with a JR4 catheter. The left coronary system was accessed and visualized with a JL4 catheter. The left ventricle was accessed and visualized with a PIGTAIL catheter. The patient tolerated the procedure well and there were no complications associated with the procedure. There was no hematoma. An 8F [place] sheath was placed in the right femoral vein and swan catheter inserted. Intraoperative Conscious Sedation Fentanyl 50 mcg Versed 1 mg Fluoro Time: 16.27 minutes Dose: DAP 41925.10 cGycm2 Contrast Type and Amount: Visipaque 169 ml Hemodynamics The right atrial mean pressure is 31 mmHg. The right ventricular [facility] [address] [place] [address] INVASIVE PROCEDURE REPORT Name: DEIRDREÓSCAR Room #: 210-[facility] IN ..#: [id number] Admission: 05/11/20 Attend Phys: Shanique Guo, Discharge: Date of : 67 Report #: [id number] pressure is 73/16 mmHg. The mean pulmonary capillary wedge pressure is 49 mmHg. The aortic pressure is 140/83 mmHg with a mean of 109 mmHg. The left ventricular pressure is 163/26 mmHg with a mean of mmHg. The left ventricular end diastolic pressure is 39 mmHg. Conclusion #1. Left ventriculogram revealing moderately severe global hypokinesis with a large inferior basilar infarct aneurysm. EF 20 to 25%. #2 distal left main lesion of 70 to 80% filling the severely diseased LAD and circumflex. #3 is moderate to severe LAD disease with a proximal eccentric lesion of 95% approximately a 2.0 to 2.3 mm vessel. #4 high-grade proximal circumflex OM lesion also 90% filling a moderate size marginal branch diffusely diseased #4 dominant right coronary artery occluded minimal collateralization from the left side. #5 successful right heart catheterization with [place] left and for monitoring purposes. #6 essentially successful CODE BLUE with compressions and airway protection with respiratory therapy. Pressor support aggressive diuresis. Certainly guarded condition to the ICU sedated with current recommendation for BiPAP possible intubation to follow. Recommendations and plan: Status post CODE BLUE CPR with above intervention. Will attempt to stabilize and consider possible left main LAD circumflex stenting severe diffuse disease and relatively small caliber vessels. Marked diminished ejection fraction may need hemodynamic support but appears to be improving on low-dose pressors with diuresis. Also respiratory support <ELECTRONICALLY SIGNED> By: Arturo Garcia MD, FACC 05/16/20 1619 18 18 Arturo Garcia MD, FACC /INF
--- NOTE | 2020-05-16 17:16 | NUR ---
Pt is now on CCU with improving cardiac and pulm status. Ortho has reevaluated and plans for surgery tomorrow. Pt needing toe amputation. PT/OT to eval. Pt's mo medicaid application is in process. Pt is normally indep with gait and adl's and lives with s.o. in an apt. She ut[facility]. Will f/u on Tuesday to assess for any mobility issues, dme or iv at needs.
--- NOTE | 2020-05-16 18:42 | NUR ---
RECEIVED PT'S CARE AROUND 729; PT. ON BED; RESTING WITH EYES CLOSED; EQUAL CHEST RISING; SLEEP INTERRUPTED DURING SHIFT CHANGED; ALERT; DURING ASSESSMENT AOX4; NO C/O PAIN; ST. NOT ABLE TO CONTROL BG FOR YEARS; STARTED HAVING CONTROLS AT [place] FEW MONTHS AGO; REQUESTED LOSS CONTROL REPRESENTATIVE IF POSSIBLE; PHYSICIAN NOTIFIED DURING ROUNDING; LOSS CONTROL REPRESENTATIVE NOTIFIED; PHYSICIAN OUT OF TOWN DURING THE WEEK; C/O DIZZINES WHEN STANDING UP AND AMBULATING FROM BED TO RESTHROOM; VS WNL; PHYSICIAN NOTIFIED; NO NEW ORDERS; C/O NAUSEA AND VOMITING AFTER HAVING SOME BITES DURING BREAKFAST AND LUNCH; PHYSICIAN NOTIFIED & RECOMMENDED CHANGE DIET; ORDERS ON PLACED; CL DIET; PAGED ORTHOPEDICS FOR UPDATE POC; PER ORTHOPEDICS TOE AMPUTATION SCHEDULED FOR 05/17/2020; REQUESTED TO NOT NOTIFIED PT. UNTIL THEY ROUND ON PT; PHYSICIANS NOTIFIED DURING ROUNDING; WOUND CARE PERFORMED BY WOUND NURSE; ABLE TO HAVE BM THIS AFTERNOON; NO SAMPLE COLLECTED DUE TO PT. DID NOT NOTIFIED IT; EDUCATED ABOUT FALL PRECAUTIONS; NEED TO BE REMAINED ABOUT IT; WILL PASS ON REPORT; ASSESSMENT CHARGED; FOLLOWING POC; WILL PASS ON REPORT;
[2020-05-17 04:48] VITALS: BP 134/73
[2020-05-17 05:00] VITALS: BP 126/53
[2020-05-17 06:13] LABS: HEMATOCRIT 25.8 % (37.0-47.0); HEMOGLOBIN 8.4 gm/dL (12.0-15.0); MCH 29.1 pg (26.0-34.0); MCHC 32.7 g/dL (28.0-37.0); MCV 88.9 fL (80.0-100.0); RBC 2.9 mil/uL (4.20-5.00); WBC 8.7 thou/uL (4.0-11.0)
--- NOTE | 2020-05-17 06:32 | NUR ---
ASSUME CARE 1900. PT/VITALS STABLE. DENIES ANY PAIN. ADEQUATE REST WITH NO DISTRESS NOTED THROUGH THE SHIFT. GOOD EDURANCE TO ACTIVITY. ASSESSMENT CHARTED. PROGRESSING MODERATELY TO POC. NPO SINCCE MIDNIGHT FOR POSSIBLE AMPUTATION OF R SMALL AND 4TH TOES TODAY. PT UNDERSTANDS SHE WILL HAVE SURGERY TODAY BUT STATES THE MD HAS NOT YET EXPLAINED THE PROCEDURE TO HER. CONSENT NOT SIGNED BASED ON THIS INFORMATION. WILL SIGN WHEN SHE TALKS WITH SURGEON. WILL CONTINUE TO MONITOR AND FOLLOW WITH POC
[2020-05-17 08:11] VITALS: BP 138/76
[2020-05-17 12:30] VITALS: BP 141/77
[2020-05-17 16:19] VITALS: BP 124/73
--- NOTE | 2020-05-17 18:15 | NUR ---
PT RESTING IN BED AFTER SURGERY. RIGHT FT DRESSING CDI, TOES BLANCHABLE, PT HAS NO NUMBNESS, GAVE HYDROCODONE FOR PAIN 6/10 IN FOOT, PT VOIDED, AWARE THAT SHE NEEDS TO USE BSC UNTIL CLEARANCE FROM MD OR PT, PT'S BOYFRIEND AT SIDE, BOTH WERE ABLE TO SPEAK WITH DR LACY WHO EXPLAINED POC IN BOTH [place] AND [place].
[2020-05-17 19:15] VITALS: BP 105/63
[2020-05-18 00:16] VITALS: BP 123/66
[2020-05-18 04:30] VITALS: BP 130/70
[2020-05-18 07:03] VITALS: BP 135/81
--- NOTE | 2020-05-18 07:46 | NUR ---
ASSUME CARE 1900. PT/VITALS STABLE. INTERMITTENT RIGHT FOOT PAIN/ PAIN MEDS FOR RELIEF. ASSESSMENT CHARTED. PROGRESSING WELL WITH POC. SR ON MONITOR. SURGICAL SITE CDI. ADEQUATE CAP REFILL ON REST OF TOES ON RIGHT FOOT. TOLERATING ACTIVITY WELL. PLAN IS POSSIBLE DISCHARGE WITHIN 1-2 DAYS. WILL CONTINUE TO MONITOR AND FOLLOW WITH POC
--- NOTE | 2020-05-18 10:11 | O ---
[facility] [place] [address] OPERATIVE REPORT Name: ÓSCAR GILMORE Room #: 210-P ADM IN M.R.#: [id number] Admission: 05/11/20 Attend Phys: Shanique Guo MD Discharge: Date of : 67 Report #: [id number] THIS REPORT FOR: cc: FAM - Family physician unknown FAM - Family physician unknown Brant Ritter MD ~ CC: [facility] unknown Shanique Guo DATE OF SERVICE: 05/17/2020 SURGEON: Brant Ritter MD ALARM SIGNALER: Dione Lewis. PREOPERATIVE DIAGNOSES: 1. Osteomyelitis of fifth toe. 2. Gangrene of the fourth and fifth toe, right foot. 3. Severe peripheral arterial disease. 4. Diabetes mellitus. 5. Diabetic foot wound. POSTOPERATIVE DIAGNOSES: 1. Osteomyelitis of fifth toe. 2. Gangrene of the fourth and fifth toe, right foot. 3. Severe peripheral arterial disease. 4. Diabetes mellitus. 5. Diabetic foot wound. PROCEDURE: Right fourth and fifth ray amputation. COMPLICATIONS: None. DRAINS: None. SPECIMENS: Fourth and fifth toes. HISTORY: The patient is a 54-year-old uncontrolled diabetic with history of diabetic foot wound that had progressed. She had a mummified dry gangrenous right fifth toe and she had progression of the necrosis and gangrene to the fourth toe. She was indicated for amputation for osteomyelitis and a nonhealing wound. She underwent revascularization procedure initially at [facility] and then she had second one performed with a more comprehensive revascularization on Tuesday of this past week. We are planning to proceed with amputation after that procedure, but she had a cardiac arrest event in the angio suite and she was resuscitated and seen by Cardiology and treated in the [facility] [address] [place] [address] OPERATIVE REPORT Name: ÓSCAR GILMORE Room #: 210-P ADM IN ..#: [id number] Admission: 05/11/20 Attend Phys: Shanique Guo MD Discharge: Date of : 67 Report #: [id number] cardiac care unit. Her escrow representative and her treating admitting hospitalist felt that she was optimized medically to proceed with surgical treatment of the foot and so we made a decision to proceed in the interim. Three days since the cardiac event, she had progression of her necrosis involving the fourth toe and she understood the importance of proceeding in a timely fashion. The risks, benefits, alternatives and indications of surgery were discussed with her in detail. Risks include but not limited to pain, bleeding, persistent infection, need for further surgery, wound breakdown and complications related to anesthesia up to and including . Despite these risks, she wished to proceed. PROCEDURE IN DETAIL: After right lower extremity was correctly identified, she was taken to the operating room where general anesthesia was induced without complication. She was padded appropriately. She was already on antibiotic regimen. Right foot was prepped and draped in standard sterile fashion. Time-out procedure was performed. A tourniquet was not used during the procedure. She had a unique necrosis pattern and so the effort with today's surgery was to resect the necrotic tissue, but only remove the fourth and fifth toes and not have to proceed with a transmetatarsal amputation. The skin flap was then fashioned to maximize tissue retention. The necrotic tissue was outlined and extended to about midway down the metatarsals on the dorsal side of the foot on the 4th and 5th. Sharp blade was used to cut around the perimeter of the necrotic tissue, which was more proximal on the dorsal side and very distal on the plantar side. The fourth and fifth toes were removed with the necrotic soft tissue and then the fourth and fifth metatarsals were exposed. There was some deep purulence of the metatarsophalangeal joint on the fourth toe and the fifth toe. An elevator was used to dissect the metatarsal shafts for visibility. The bone here was healthy. It was transected near the base on the fifth and then slightly distal and then the sharp edges were removed with the rongeur. Tissue debulking was then performed and the plantar flap was used to mobilize and advance over the lateral side of the foot and closed to the wound. A multilayered surgical closure was performed in order to minimize tissue tension. We used a #1 PDS deep to perform large sutures to advance the deep soft tissues and alleviate tension on the skin and then #0 PDS was used with the more superficial layer to advance the skin edges and then the skin edges were closed with 2-0 nylon. Successful wound closure was achieved. Sterile dressing was applied and the patient was then awakened from anesthesia and taken to recovery room in stable condition. There were no complications. All counts were correct. <ELECTRONICALLY SIGNED> By: Brant Ritter MD 05/18/20 1011 1058 1118 Brant Ritter MD /nt
[2020-05-18 12:12] VITALS: BP 121/72
[2020-05-18 15:32] VITALS: BP 133/73
[2020-05-18 20:46] VITALS: BP 97/30
[2020-05-19 05:46] VITALS: BP 111/55
--- NOTE | 2020-05-19 05:46 | NUR ---
assumed pt care at the change of shift, assessments as charted, sr on the monitor, meds given as per mar, denies pain or sob, dressing intact, no acute events overnight, progressing well towards discharge
[2020-05-19 08:00] VITALS: BP 136/79
[2020-05-19 16:00] VITALS: BP 118/69
[2020-05-19] MEDS ORDERED: LEVOFLOXACIN500 MG PO (17:19)
[2020-05-19] MEDS ORDERED: IMDUR 30 MG TAB30 M1 PO (17:19)
--- NOTE | 2020-05-19 17:21 | NUR ---
SPOKE WITH NURSE FROM [facility], SHE STATED SHE DID NOT WANT PT TO HAVE A POST OP SHOE, SHE THOUGHT IT WOULD ENCOURAGE PT TO WALK ON FOOT, SHE STATED TO HAVE PT FOLLOW UP WITH ORTHO IN 2 WEEKS
[2020-05-19 17:30] VITALS: BP 136/79
--- NOTE | 2020-05-19 17:57 | NUR ---
Patient to dc. 2 scripts sent to [facility]. GIBSON to give good RX card. Patient to f/u with wound care clinic. Dtr in [facility] to stay with patient and assist. She has purchased a wc. Vouched for walker for patient. Zeina worked with patient and cleared for dc home with assist of dtr.
--- NOTE | 2020-05-19 18:42 | NUR ---
REVIEWED PT DISCHARGE INSTRUCTIONS WITH PT AND DAUGHTER, ALL PHYSICIAN'S NUMBERS GIVEN TO PT, SPECIALTY WRITTEN, NUMBER AND ADDRESS HIGHLIGHTED AND WHEN FOLLOW UP SHOULD BE WRITTEN ON THERE. WOUND CARE REVIEWED WITH PT AND DAUGHTER AND A FEW DAYS SUPPLY GIVEN TO THEM. DISCOUNT RX CARDS GIVEN, PRESCRIPTION PRICES REVIEWED WITH THEM. PT KNOWS PER DR RENNER TO MONITOR BLOOD SUGARS FOR DROP ON LEVAQUIN. PT TO WAIT UNTIL AN HOUR POST LEVAQUIN DOSE TO CHECK QT INTERVAL, MONITOR FOR REACTION AND THEN DISCONTINUE TELE AND PICC LINE. ALL DISCHARGE INSTRUCTIONS, EDUCATION MATERIALS AND APPOINTMENT CARDS GIVEN TO PT. ALL QUESTIONS ANSWERED.
[2020-05-19 20:12] VITALS: BP 110/64
--- NOTE | 2020-05-19 20:13 | NUR ---
ASSUMED PT CARE AT THE CHANGE OF SHIFT, PT IS AWAKE, ALERT AND ORIENTED,X4, DAUGHTER AT BEDSIDE, PT READY FOR D/C, PICC LINE REMOVED, PRESSURE HELD, PRESSURE DRESSING APPLIED, NO BLEEDING NOTED, PT SR ON THE MONITOR, PT LEFT THE FLOOR AT 1999 WITH DAUGHTER, PT IN GOOD SPIRITS, NO DISTRESS NOTED, DENIED HAVING CONCERNS, STATED UNDERSTANDING OF DISCHARGE INSTRUCTIONS GIVEN PRIOR TO THIS SHIFT
--- NOTE | 2020-05-20 08:00 | HC ---
[facility] [place] [address] CONSULTATION Name: ÓSCAR GILMORE Room #: 210-P [facility] IN M.R.#: [id number] Admission: 05/11/20 Attend Phys: Shanique Guo MD Discharge: 05/19/20 Date of : 67 Report #: [id number] THIS REPORT FOR: cc: NASRA - Family physician unknown NASRA - Family physician unknown Maribell Alvarado MD ~ DATE OF SERVICE: 05/19/2020 ENDOCRINE CONSULTATION NOTE CONSULTING PHYSICIAN: Dr. Guo. REASON FOR CONSULTATION: Uncontrolled type 2 diabetes mellitus. HISTORY OF PRESENT ILLNESS: This is a 54-year-old female patient whose medical background is significant for multiple medical issues including type 2 diabetes mellitus, hypertension, and hyperlipidemia. The patient has been most recently maintained on a combination of Lantus insulin 10 units at bedtime in addition to Humalog insulin 8 units with meals. She admits to having been noncompliant with diet advice in the past, which had caused her blood glucose values to often be above 200 mg/dL, but explained that as she had started dealing with her nonhealing foot wound and started to adhere more to the dietary instructions that her blood glucose values have dropped predominantly into the low to mid 100s. She has not had major issues with hypoglycemia. The patient is not aware of difficulties pertaining to strokes or CAD in the past. However, she has a history of congestive heart failure with an ejection fraction of 35%, as well as peripheral diabetic neuropathy. The patient presented primarily with difficulties pertaining to gangrenous changes of her right foot and ended up undergoing a right fourth and fifth toe amputation yesterday and is doing well. REVIEW OF SYSTEMS: CONSTITUTIONAL: Fatigue, tiredness, but not weight changes. PULMONARY: Negative for shortness of breath, cough or hemoptysis. CARDIAC: Negative for chest pain, palpitations, syncope or presyncope. GASTROINTESTINAL: Negative for abdominal pain, nausea, vomiting or changes in bowel movement or frequency. NEUROLOGY: Negative for loss of consciousness, severe frequent headaches or seizure activity. Otherwise, review of systems noncontributory other than those mentioned in HPI. PAST MEDICAL HISTORY: [facility] [address] [place] [address] CONSULTATION Name: ÓSCAR GILMORE Room #: 210-P [facility] IN .R.#: [id number] Admission: 05/11/20 Attend Phys: Shanique Guo MD Discharge: 05/19/20 Date of : 67 Report #: [id number] 1. Type 2 diabetes mellitus. 2. Hypertension. 3. Hyperlipidemia. 4. Congestive heart failure, ejection fraction of 35%. 5. Pulmonary hypertension. 6. History of pyelonephritis. 7. Peripheral vascular disease, status post stent placement in her femoral artery. OUTPATIENT MEDICATIONS: Include Plavix 75 mg daily, aspirin 81 mg daily, Coreg 6.25 mg b.i.d., losartan 50 mg daily, torsemide 40 mg daily, KCl 20 mEq b.i.d., Lantus insulin 10 units at bedtime, Humalog insulin 8 units with meals. ALLERGIES: No known drug allergies. FAMILY HISTORY: Noncontributory. SOCIAL HISTORY: She denies use of tobacco, alcohol or illicit drugs. PHYSICAL EXAMINATION: GENERAL: Pleasant female patient who is not in apparent pain or distress. VITAL SIGNS: Blood pressure is 136/79 mmHg, heart rate is 84 beats per minute, respirations 16 per minute, and temperature 37.7 degrees Celsius. CONSTITUTIONAL: The patient appears comfortable, not in apparent distress, sitting upright in bed. HEENT: Anicteric sclerae. Intact extraocular motions. NECK: Supple, without JVD, carotid bruits or thyromegaly. CHEST: Noted for moderate air entry bilaterally with scattered rales. No wheeze or crackles. HEART: Regular rate and rhythm without murmurs or gallops. ABDOMEN: Soft, lax. No guarding. Active bowel sounds. EXTREMITIES: Lower extremity exam is noted for trace ankle edema. Right foot is wrapped in surgical dressing. NEUROLOGIC: Awake, alert and oriented to time, place and person. The remainder of her examination is nonfocal. LABORATORY DATA: Blood glucose values were reviewed and they have essentially predominantly been under 160 mg/dL without hypoglycemia occurs. Sodium is 140, potassium 3.8, chloride 102, CO2 of 27, anion gap 11, BUN 15, creatinine 1.1, glucose 108, AST 20, lipase 24, total bilirubin 0.4, calcium 9.0, phosphorus 3.9, magnesium 2.0, alkaline phosphatase 215, ALT 30, total protein 7.1, albumin 2.3, EGFR 52. Lactic acid 1.0. CPK 48, troponin 0.10, White blood count 8.7, hemoglobin 8.4, hematocrit 25.8, and platelets 472. Hemoglobin A1c in on 05/12/2020 was 11.3. [facility] [address] [place] [address] CONSULTATION Name: ÓSCAR GILMORE Room #: 210-P [facility] IN M.R.#: [id number] Admission: 05/11/20 Attend Phys: Shanique Guo MD Discharge: 05/19/20 Date of : 67 Report #: [id number] ASSESSMENT AND PLAN: 1. Type 2 diabetes mellitus, uncontrolled as evidenced by her reported blood glucose values as well as by recorded hemoglobin A1c upon admission. Without a doubt, there is a significant component of dietary and therapeutic noncompliance as per the patient's recognition. However, the patient is amenable to excellent control as is the case during this hospital stay with a low dose of insulin as Lantus 10 units at bedtime and support with a mild low intensity Humalog supplemental scale. I counseled the patient extensively about the importance of achieving and maintaining adequate glycemic control to avoid diabetic complications in the future. She seems to be quite motivated to achieve that and showed a preparedness to commit to a diet plan and therapeutic consistency. I would advise that she continues the current regimen given her extraocular control at the time being. 2. Hypertension. The patient's level of blood pressure control is adequate, continue the current regimen. 3. Hyperlipidemia. The patient is maintained on atorvastatin therapy and tolerates it well. She is to continue with the same. I certainly appreciate this consultation by Dr. John. <ELECTRONICALLY SIGNED> By: Maribell Alvarado MD 05/20/20 0800 [id number] [id number] Maribell Alvarado MD /nt
--- NOTE | 2020-05-21 17:06 | PATH ---
[facility] [address] [place] [address] PATHOLOGY RPT PROCEDURE Name: MARYAN GILMORE Room #: 210-P [facility] IN M.R.#: [id number] Admission: 05/11/20 Date of : 67 Discharge: 05/19/20 Report #: [id number] Path Case #: [id number] [facility] Accession Number: [id number] . 01 Material submitted: . toe - RIGHT FOURTH AND FIFTH TOES. Modifiers: right, fourth, fifth . 01 Clinical history: . TRANSMETATARSAL AMPUTATION GANGRENE RIGHT LOWER EXTREMITY . 02 Diagnosis: Toes, right fourth and fifth, transmetatarsal amputation: - Ulceration associated with extensive gangrenous necrosis. - Underlying bone associated with marked acute osteomyelitis. - Bone margins (on the separate metatarsals) viable. (IUV:tania; 05/21/2020) QMS 05/21/2020 1422 Local . 02 Electronically signed: . Zora Wayne MD, Pathologist NPI- [id number] . 01 Gross description: . The specimen is received in formalin, labeled "Maryan Gilmore, right fourth and fifth toes". Received are two amputated digits measuring 6.8 x 4.5 x 3.0 cm in greatest dimensions. The bone margins are smooth and concave in appearance, consistent with disarticulation. The epidermal surface is pale ramírez and sloughing to mummified in appearance. Toe 5 is completely mummified in appearance. The specimen is submitted representatively as follows: . A1 horizontal cross-section through toe 4, following decalcification A2 horizontal cross-section through toe 5, following decalcification. . Also received within the specimen container are two metatarsal measuring 4.1 x 1.7 x 1.1 and 4.3 x 1.4 x 1.4 cm in greatest dimensions. One margin of each metatarsal is jagged in appearance and the opposite margins are smooth and convex in appearance, consistent with disarticulation. The disarticulated aspect displaying a dusky pale ramírez appearance. The jagged bone margins are inked black and blue, respectively. The specimen is submitted representatively as follows: . A3-A4 longitudinal cross-section through smaller metatarsal, following decalcification A5-A6 longitudinal cross-section through larger metatarsal, following decalcification. [address] [address] PATHOLOGY RPT PROCEDURE Name: MARYAN GILMORE Room #: 210-P DIS IN M.R.#: [id number] Admission: 05/11/20 Date of : 67 Discharge: 05/19/20 Report #: [id number] Path Case #: [id number] (CAA; 05/20/2020) QAC/QAC 05/20/2020 1040 Local . 02 Pathologist provided ICD-10: M86.171, I96 . 02 CPT . 112845, 522357 Specimen Comment: A courtesy copy of this report has been sent to [phone] Specimen Comment: Report sent to Performed at: [address] [facility] [address], [place], [place] [id number] MD Koffi Mayer MD Phone: [phone] Performed at: [address] [facility] [address] [id number] MD Zora Wayne MD Phone: [phone]
== END 2020-05-19 20:00 | disposition home or self-care (01) | DRG 270 ==
LOC: ER 11:33 → 4S 16:31 → EROBS 16:31 → ICU 16:31 → 4S 16:31 → ICU 05-14 12:05 → 2N 05-16 03:58
PROVIDERS: Hospitalist; Internal Medicine Cardiovascular Disease; Nurse Practitioner; Nurse Practitioner Adult Health; Physician Assistant; ADMIT Internal Medicine; ATTEND Internal Medicine
PROC: 5A12012 Performance of Cardiac Output, Single, Manual (ICD-10-PCS; principal; 2020-05-14)
PROC: 047K3DZ Dilation of Right Femoral Artery with Intraluminal Device, Percutaneous Approach (ICD-10-PCS; principal; 2020-05-14)
PROC: 047T3ZZ Dilation of Right Peroneal Artery, Percutaneous Approach (ICD-10-PCS; principal; 2020-05-14)
PROC: 4A023N8 Measurement of Cardiac Sampling and Pressure, Bilateral, Percutaneous Approach (ICD-10-PCS; principal; 2020-05-14)
PROC: 04CM3ZZ Extirpation of Matter from Right Popliteal Artery, Percutaneous Approach (ICD-10-PCS; principal; 2020-05-14)
PROC: 04CK3ZZ Extirpation of Matter from Right Femoral Artery, Percutaneous Approach (ICD-10-PCS; principal; 2020-05-14)
PROC: B418YZZ Fluoroscopy of Bilateral Renal Arteries using Other Contrast (ICD-10-PCS; principal; 2020-05-14)
PROC: B41DYZZ Fluoroscopy of Aorta and Bilateral Lower Extremity Arteries using Other Contrast (ICD-10-PCS; principal; 2020-05-14)
PROC: 04CT3ZZ Extirpation of Matter from Right Peroneal Artery, Percutaneous Approach (ICD-10-PCS; principal; 2020-05-14)
PROC: 5A2204Z Restoration of Cardiac Rhythm, Single (ICD-10-PCS; principal; 2020-05-14)
PROC: B211YZZ Fluoroscopy of Multiple Coronary Arteries using Other Contrast (ICD-10-PCS; principal; 2020-05-14)
PROC: B215YZZ Fluoroscopy of Left Heart using Other Contrast (ICD-10-PCS; principal; 2020-05-14)
PROC: 047M34Z Dilation of Right Popliteal Artery with Drug-eluting Intraluminal Device, Percutaneous Approach (ICD-10-PCS; principal; 2020-05-14)
PROC: 047C3DZ Dilation of Right Common Iliac Artery with Intraluminal Device, Percutaneous Approach (ICD-10-PCS; principal; 2020-05-14)
PROC: 047J3DZ Dilation of Left External Iliac Artery with Intraluminal Device, Percutaneous Approach (ICD-10-PCS; principal; 2020-05-14)
PROC: 02HV33Z Insertion of Infusion Device into Superior Vena Cava, Percutaneous Approach (ICD-10-PCS; principal; 2020-05-14)
PROC: 04CJ3ZZ Extirpation of Matter from Left External Iliac Artery, Percutaneous Approach (ICD-10-PCS; principal; 2020-05-14)
PROC: 04CC3ZZ Extirpation of Matter from Right Common Iliac Artery, Percutaneous Approach (ICD-10-PCS; principal; 2020-05-14)
PROC: 0Y6M0ZD Detachment at Right Foot, Partial 4th Ray, Open Approach (ICD-10-PCS; 2020-05-17)
PROC: 0Y6M0ZF Detachment at Right Foot, Partial 5th Ray, Open Approach (ICD-10-PCS; 2020-05-17)
DX: E11.52 Type 2 diabetes mellitus with diabetic peripheral angiopathy with gangrene (principal); I50.23 Acute on chronic systolic (congestive) heart failure; I46.9 Cardiac arrest, cause unspecified; J96.02 Acute respiratory failure with hypercapnia; I96 Gangrene, not elsewhere classified; L03.115 Cellulitis of right lower limb; M86.8X7 Other osteomyelitis, ankle and foot; N17.9 Acute kidney failure, unspecified; I13.0 Hypertensive heart and chronic kidney disease with heart failure and stage 1 through stage 4 chronic kidney disease, or unspecified chronic kidney disease; E44.0 Moderate protein-calorie malnutrition; E78.5 Hyperlipidemia, unspecified; E11.69 Type 2 diabetes mellitus with other specified complication; N18.30 Chronic kidney disease, stage 3 unspecified; D63.8 Anemia in other chronic diseases classified elsewhere; E66.9 Obesity, unspecified; E11.65 Type 2 diabetes mellitus with hyperglycemia; S92.534A Nondisplaced fracture of distal phalanx of right lesser toe(s), initial encounter for closed fracture; X58.XXXA Exposure to other specified factors, initial encounter; I25.10 Atherosclerotic heart disease of native coronary artery without angina pectoris; I25.5 Ischemic cardiomyopathy; E11.22 Type 2 diabetes mellitus with diabetic chronic kidney disease; I27.20 Pulmonary hypertension, unspecified; Z20.828 Contact with and (suspected) exposure to other viral communicable diseases; Z90.49 Acquired absence of other specified parts of digestive tract; Z90.710 Acquired absence of both cervix and uterus; Z95.820 Peripheral vascular angioplasty status with implants and grafts; Z79.899 Other long term (current) drug therapy; Z79.82 Long term (current) use of aspirin; Z79.4 Long term (current) use of insulin; Z83.3 Family history of diabetes mellitus; Z68.30 Body mass index [BMI] 30.0-30.9, adult; Z79.02 Long term (current) use of antithrombotics/antiplatelets; Y93.89 Activity, other specified; Y92.89 Other specified places as the place of occurrence of the external cause; Y99.8 Other external cause status
CPT/HCPCS: 10081; 10194; 10195; 10196; 27000; 50010; 50101; 50386; 56525; 57091; 62110; 62900; 70005

== ENCOUNTER → 2020-06-05 | Outpatient (CLI) | payer OTHER ==
[~2020-06-05] MED LIST changes: +IMDUR 30 MG TAB30 M1 PO; +LANTUS SUBQ; +LEVOFLOXACIN500 MG PO; +NOVOLOG FL100 UNIT/M SUBQ
== END ==
LOC: HYPER 09:03
PROVIDERS: ATTEND Emergency Medicine
DX: T81.31XA Disruption of external operation (surgical) wound, not elsewhere classified, initial encounter (principal); E11.621 Type 2 diabetes mellitus with foot ulcer; L97.512 Non-pressure chronic ulcer of other part of right foot with fat layer exposed; L03.031 Cellulitis of right toe; E11.52 Type 2 diabetes mellitus with diabetic peripheral angiopathy with gangrene; I96 Gangrene, not elsewhere classified; E11.65 Type 2 diabetes mellitus with hyperglycemia; E43 Unspecified severe protein-calorie malnutrition; E78.5 Hyperlipidemia, unspecified; I25.2 Old myocardial infarction; I11.0 Hypertensive heart disease with heart failure; I50.9 Heart failure, unspecified; Z86.73 Personal history of transient ischemic attack (TIA), and cerebral infarction without residual deficits; Z90.49 Acquired absence of other specified parts of digestive tract; Z90.710 Acquired absence of both cervix and uterus; Z79.82 Long term (current) use of aspirin; Y92.238 Other place in hospital as the place of occurrence of the external cause; Y83.8 Other surgical procedures as the cause of abnormal reaction of the patient, or of later complication, without mention of misadventure at the time of the procedure